=== PATIENT | female | born 1955 | race Caucasian/White ===

== ENCOUNTER 2017-05-21 10:34 | Inpatient (IN) | payer OTHER ==
[~2017-05-21] VITALS: Ht 160 cm; Wt 110.7 kg
[2017-05-21 11:11] LABS: BILIRUBIN,URINE MODERATE (NEG); GLUCOSE,URINE NEGATIVE (NEG); NITRITE,URINE NEGATIVE (NEG); PH,URINE 6.5; PROTEIN,URINE 30 mg/dL (NEG-TRACE)
[2017-05-21 11:38] LABS: BACTERIA,URINE FEW /HPF (0-FEW); RBC,URINE 0 /HPF (0-2); SQUAMOUS EPITHELIAL CELL,UR MANY /LPF; WBC,URINE 0 /HPF (0-4)
[2017-05-21] MEDS ORDERED: ONDANSETRON PF 4 MG/2 ML VIAL. IV ONE (12:00)
[2017-05-21] MEDS ORDERED: fentaNYL PF VIAL 100 MCG/2 ML VIAL IV ONE (12:00)
[2017-05-21] MEDS ORDERED: IOHEXOL 300 MG/ML 100ML VIAL. IV ONE (12:00)
[2017-05-21 12:28] LABS: CALCIUM 9.6 mg/dL (8.5-10.1); CREATININE 1.3 mg/dL (0.6-1.0); GFR 41.8
[2017-05-21 12:34] LABS: ALBUMIN 3.3 g/dL (3.4-5.0); ALBUMIN/GLOBULIN RATIO 0.8 (1.0-1.7); TOTAL BILIRUBIN 0.4 mg/dL (0.2-1.0); TOTAL PROTEIN 7.3 g/dL (6.4-8.2)
[2017-05-21 12:36] LABS: BASO % 0 % (0-3); EOS % 3 % (0-3); HEMATOCRIT 40.1 % (36.0-47.0); HEMOGLOBIN 13.3 g/dL (12.0-15.5); LYMPH # 1.1 x10^3/uL (1.0-4.8); LYMPH % 12 % (24-48); MEAN CORPUSCULAR HEMOGLOBIN 29 pg (25-35); MEAN CORPUSCULAR HGB CONC 33 g/dL (31-37); MEAN CORPUSCULAR VOLUME 86 fL (79-100); MONO % 7 % (0-9); NEUT % 78 % (31-73); PLATELET COUNT 320 x10^3/uL (140-400); RED BLOOD COUNT 4.65 x10^6/uL (3.50-5.40); RED CELL DISTRIBUTION WIDTH 14.3 % (11.5-14.5); WHITE BLOOD COUNT 9.7 x10^3/uL (4.0-11.0)
[2017-05-21] MEDS ORDERED: IOHEXOL 240 MG/ML 50ML VIAL. PO ONE (13:00)
[2017-05-21] MEDS ORDERED: CONTRAST GIVEN MC PRN (13:00)
--- NOTE | 2017-05-21 14:13 | RAD ---
CT of the abdomen and pelvis without contrast, 05/21/2017: History: Right-sided pain Multidetector CT imaging was performed following oral ingestion of contrast. No IV contrast was administered due to the patient's known renal insufficiency. There is mild streaky atelectasis/infiltrate in the right lung base posteriorly. There is a trace amount of associated right-sided pleural fluid. The left lung base is clear. The unopacified liver is unremarkable. The gallbladder contains a single rim-like calcification compatible with a gallstone. The gallbladder barrios are slightly thickened with mild streaky pericholecystic edema. The findings suggest acute cholecystitis. No pancreatic abnormality is seen. The spleen is of normal size. The unopacified kidneys show no abnormality. No adrenal abnormality is detected. Mild aortic calcific plaquing is present without evidence of aneurysm. The uterus and ovaries are unremarkable. There is a tiny amount of free fluid in the pelvis. The bowel loops are not dilated. Several sigmoid diverticula are noted without evidence of paracolic inflammation. The appendix is visualized and it shows no abnormality. No free air is evident in the abdomen. There are mild to moderate scattered degenerative changes in the lumbar spine. IMPRESSION: 1. Cholelithiasis with mild gallbladder wall thickening and pericholecystic edema suggesting acute cholecystitis. 2. Mild right basilar atelectasis and/or pneumonitis with a trace amount of right-sided pleural fluid. 3. Tiny amount of free fluid in the pelvis. 4. Minimal sigmoid diverticulosis. PQRS Compliance Statement: One or more of the following individualized dose reduction techniques were utilized for this examination: 1. Automated exposure control 2. Adjustment of the mA and/or kV according to patient size 3. Use of iterative reconstruction technique
--- NOTE | 2017-05-21 14:43 | PHYS DOC ---
Past Medical History Past Medical History: Hypertension Past Surgical History: Tonsillectomy Alcohol Use: None Drug Use: None Adult General Chief Complaint Chief Complaint: ABDOMINAL PAIN HPI HPI Patient is a 61 year old female with history of biliary disease who presents with diffuse right upper quadrant pain, nausea and vomiting, multiple episodes starting last evening. Pain is persistent with palpation and eating. Patient reports decreased appetite has not attempted to eat or drink since symptoms first began. No fever, chills or sweats. No constipation or diarrhea. No other acute symptoms or complaints. [] Review of Systems Review of Systems Review of symptoms as per history of present illness. All other review symptoms are negative. All other systems were reviewed and found to be within normal limits, except as documented in this note. Current Medications Current Medications Current Medications Medications (Trade) Dose Ordered Sig/Dani Start Time Stop Time Status Last Admin Dose Admin Fentanyl Citrate (Fentanyl 2ml Vial) 75 mcg 1X ONCE 05/21/17 12:00 05/21/17 12:01 DC 05/21/17 12:25 75 MCG Info (Do NOT chart on this entry -- for MONITORING) 1 each PRN DAILY PRN 05/21/17 13:00 05/23/17 12:59 Iohexol (Omnipaque 240 Mg/ml) 30 ml 1X ONCE 05/21/17 13:00 05/21/17 13:01 DC 05/21/17 13:48 30 ML Iohexol (Omnipaque 300 Mg/ml) 75 ml 1X ONCE 05/21/17 12:00 05/21/17 12:01 DC Ondansetron HCl (Zofran) 4 mg 1X ONCE 05/21/17 12:00 05/21/17 12:01 DC 05/21/17 12:24 4 MG Piperacillin Sod/ Tazobactam Sod (Zosyn) 3.375 gm 1X 05/21/17 14:45 Piperacillin Sod/ Tazobactam Sod 3.375 gm/Dextrose 50 ml @ 100 mls/hr 1X ONCE 05/21/17 14:45 05/21/17 15:14 UNV Allergies Allergies Allergies Coded Allergies Type Severity Reaction Last Updated Verified No Known Drug Allergies 05/21/17 No Physical Exam Physical Exam Constitutional: Well developed, well nourished, no acute distress, non-toxic appearance. [] HENT: Normocephalic, atraumatic, bilateral external ears normal, oropharynx moist, no oral exudates, nose normal. [] Eyes: PERRLA, EOMI, conjunctiva normal, no discharge. [] Neck: Normal range of motion, no tenderness, supple, no stridor. [] Cardiovascular:Heart rate regular rhythm, no murmur [] Lungs & Thorax: Bilateral breath sounds clear to auscultation [] Abdomen: Bowel sounds normal, soft, right upper quadrant pain, tenderness, voluntary guarding. [] Skin: Warm, dry, no erythema, no rash. [] Back: No tenderness, no CVA tenderness. [] Extremities: No tenderness, no cyanosis, no clubbing, ROM intact, no edema. [] Neurologic: Alert and oriented X 3, normal motor function, normal sensory function, no focal deficits noted. [] Psychologic: Affect normal, judgement normal, mood normal. [] Current Patient Data Vital Signs Vital Signs Date Time Temp Pulse Resp B/P (MAP) Pulse Ox O2 Delivery O2 Flow Rate FiO2 05/21/17 12:55 Room Air 05/21/17 12:43 84 21 119/71 (87) 05/21/17 12:25 94 05/21/17 10:37 98.1 98.1 Lab Values Laboratory Tests Test 05/21/17 10:55 05/21/17 11:23 Urine Collection Type Unknown Urine Color Jennifer Urine Clarity Cloudy Urine pH 6.5 Urine Specific [place] 1.025 Urine Protein 30 mg/dL (NEG-TRACE) Urine Glucose (UA) Negative mg/dL (NEG) Urine Ketones (Stick) 15 mg/dL (NEG) Urine Blood Negative (NEG) Urine Nitrite Negative (NEG) Urine Bilirubin Moderate (NEG) Urine Urobilinogen Dipstick 1.0 mg/dL (0.2 mg/dL) Urine Leukocyte Esterase Small (NEG) Urine RBC 0 /HPF (0-2) Urine WBC 0 /HPF (0-4) Urine Squamous Epithelial Cells Many /LPF Urine Bacteria Few /HPF (0-FEW) Urine Mucus Mod /LPF White Blood Count 9.7 x10^3/uL (4.0-11.0) Red Blood Count 4.65 x10^6/uL (3.50-5.40) Hemoglobin 13.3 g/dL (12.0-15.5) Hematocrit 40.1 % (36.0-47.0) Mean Corpuscular Volume 86 fL (79-100) Mean Corpuscular Hemoglobin 29 pg (25-35) Mean Corpuscular Hemoglobin Concent 33 g/dL (31-37) Red Cell Distribution Width 14.3 % (11.5-14.5) Platelet Count 320 x10^3/uL (140-400) Neutrophils (%) (Auto) 78 % (31-73) H Lymphocytes (%) (Auto) 12 % (24-48) L Monocytes (%) (Auto) 7 % (0-9) Eosinophils (%) (Auto) 3 % (0-3) Basophils (%) (Auto) 0 % (0-3) Neutrophils # (Auto) 7.5 x10^3uL (1.8-7.7) Lymphocytes # (Auto) 1.1 x10^3/uL (1.0-4.8) Monocytes # (Auto) 0.7 x10^3/uL (0.0-1.1) Eosinophils # (Auto) 0.3 x10^3/uL (0.0-0.7) Basophils # (Auto) 0.0 x10^3/uL (0.0-0.2) Sodium Level 141 mmol/L (136-145) Potassium Level 3.0 mmol/L (3.5-5.1) L Chloride Level 103 mmol/L (98-107) Carbon Dioxide Level 31 mmol/L (21-32) Anion Gap 7 (6-14) Blood Urea Nitrogen 16 mg/dL (7-20) Creatinine 1.3 mg/dL (0.6-1.0) H Estimated GFR (Cockcroft-Gault) 41.8 BUN/Creatinine Ratio 12 (6-20) Glucose Level 94 mg/dL (70-99) Calcium Level 9.6 mg/dL (8.5-10.1) Total Bilirubin 0.4 mg/dL (0.2-1.0) Aspartate Amino Transferase (AST) 22 U/L (15-37) Alanine Aminotransferase (ALT) 21 U/L (14-59) Alkaline Phosphatase 77 U/L (46-116) Total Protein 7.3 g/dL (6.4-8.2) Albumin 3.3 g/dL (3.4-5.0) L Albumin/Globulin Ratio 0.8 (1.0-1.7) L Lipase 87 U/L (73-393) Laboratory Tests 05/21/17 11:23 Laboratory Tests 05/21/17 11:23 EKG EKG [] Radiology/Procedures Radiology/Procedures [CT of and pelvis: Cholelithiasis with gallbladder wall thickening and pericholecystic fluid per radiology report] Course & Med Decision Making Course & Med Decision Making Pertinent Labs and Imaging studies reviewed. (See chart for details) [CT findings consistent with cholecystitis. IV antibiotics given. Pain controlled. Dr. Ji consult surgery. Dr. Hickman to admit. ] Dragon Disclaimer Dragon Disclaimer This electronic medical record was generated, in whole or in part, using a voice recognition dictation system. Departure Departure Impression: Primary Impression: Abdominal pain Additional Impression: Cholecystitis Disposition: ADMITTED INPATIENT Admitting Physician: Other (Dr. Hickman) Condition: STABLE Problem Qualifiers REBECA BRADY DO May 21, 2017 14:43
[2017-05-21] MEDS ORDERED: PIPERACILLIN/TAZO IV Push 3.375 GM VIAL. IVP SCH (14:45)
[2017-05-21] MEDS ORDERED: PIPERACILLIN/TAZOBACTAM 3.375 GM in IV DEXTROSE 5% 50 ML IV ONE (14:45)
[2017-05-21] MEDS ORDERED: PIPERACILLIN/TAZO IV Push 3.375 GM VIAL. IVP ONE (15:30)
[2017-05-21] MEDS ORDERED: PIP/TAZO PER PHARMACY MC PRN (16:00)
[2017-05-21 16:15] VITALS: BP 124/78
[2017-05-21] MEDS ORDERED: LISI1TAB7 PO (16:46)
[2017-05-21] MEDS: POTASSIUM CL 20MEQ-0.45% NACL 1,000 ML IV SCH (17:26)
[2017-05-21 19:00] VITALS: BP 124/68
[2017-05-21] MEDS ORDERED: INFLUENZA VAX SCREEN BY RX. MC ONE (19:30)
[2017-05-21] MEDS: MORPHINE SULFATE 4 MG/ML DISP.SYRIN. IV PRN ×2 (19:51→23:13)
[2017-05-21] MEDS ORDERED: FLU VACC QS2017-18 (36MOS+)/PF 0.5 ML SYRINGE. VAX IM ONE (20:00)
[2017-05-21] MEDS ORDERED: METOCLOPRAMIDE HCL 10 MG/2 ML VIAL. IV PRN (20:15)
--- NOTE | 2017-05-21 21:17 | HP ---
ADMIT DATE: 05/21/2017 CHIEF COMPLAINT: Abdominal pain. HISTORY OF PRESENT ILLNESS: The patient is a 61-year-old morbidly obese woman with past medical history of hypertension who presented to the Emergency Room with right upper quadrant pain, nausea, vomiting. She relates this started about 2 days ago, last night; however, it became severe and when she woke up this morning, still throwing up bile. She decided to present to the Emergency Room. She has not been able to eat and drink since symptoms began due to nausea and vomiting. She, however, denies any fevers or chills. Denies any diarrhea or other abdominal symptoms. Denies any chest pain or shortness of breath. PAST MEDICAL HISTORY: Hypertension. SURGICAL HISTORY: Tonsillectomy at age 7. SOCIAL HISTORY: Lives with her . Never smoked, no toxic habits. ALLERGIES: No known drug allergies. MEDICATIONS: MAR reconciled with home medications. REVIEW OF SYSTEMS: Positive as per HPI. Rest of organ system review is negative. PHYSICAL EXAMINATION: VITAL SIGNS: From today show a blood pressure of 124/68, heart rate of 87, respiratory rate at 18. She is afebrile. GENERAL: This is a morbidly obese 61-year-old woman, alert and oriented, in no acute distress, lying on her side. HEENT: Shows no scleral icterus. NECK: Supple. LUNGS: Clear to auscultation bilaterally. HEART: Regular rate and rhythm. ABDOMEN: Obese, positive bowel sounds. There is mild tenderness to palpation. She relates, however, that pain is persistent, not worsened by direct pressure. EXTREMITIES: Show no edema. SKIN: Warm, soft and dry without any rash. LABORATORY DATA: See with a WBC of 9.7, hemoglobin 13.3, platelets of 320. Chemistries with a BUN and creatinine of 60 and 1.3. Electrolytes with potassium of 3.0. Albumin at 3.3. Urine is benign. IMAGING STUDIES: Not available and some at [facility]. ASSESSMENT AND PLAN: The patient is a 61-year-old morbidly obese woman with cholecystitis. Dr. Ji has been consulted already and is planning to take her to surgery in the a.m. For pain control here, she will have morphine sulfate available. The Pip/Tazo was started empirically in the Emergency Room. We will continue for the time being. Probably will not need this past surgery. She will be kept n.p.o. She has metoclopramide available for nausea. She feels the contrast from her CAT scan is still in her stomach and she is burping up the flavor. She does have a history of hypertension. We will continue her home meds of lisinopril. We will hold hydrochlorothiazide. BLOSSOM DAVILA MD DR: ISAEL/leora JOB#: [id number] / [id number] YOVANY Little APRN
[2017-05-21 23:00] VITALS: BP 118/70
[2017-05-21] MEDS: PIPERACILLIN/TAZO IV Push 3.375 GM VIAL. IVP SCH (23:13)
[2017-05-21] MEDS: ONDANSETRON PF 4 MG/2 ML VIAL. IV PRN (23:17)
[2017-05-22] VITALS (12 sets, daily range): BP systolic 105–128; BP diastolic 59–76
[2017-05-22] MEDS: PIPERACILLIN/TAZO IV Push 3.375 GM VIAL. IVP SCH ×4 (06:30→23:44)
[2017-05-22] MEDS ORDERED: IV RINGERS,LACTATED 1000ML 1,000 ML IV SCH (07:28)
[2017-05-22] MEDS ORDERED: fentaNYL PF VIAL 100 MCG/2 ML VIAL IV PRN ×2 (07:30)
[2017-05-22] MEDS ORDERED: HYDROmorphone 2 MG/ML VIAL IV PRN (07:30)
[2017-05-22] MEDS ORDERED: ONDANSETRON PF 4 MG/2 ML VIAL. IV PRN ×2 (07:30→13:00)
[2017-05-22] MEDS ORDERED: LIDOCAINE 1% PF 2 ML VIAL. ID PRN (07:30)
[2017-05-22] MEDS ORDERED: MORPHINE SULFATE 2 MG/ML DISP.SYRIN. IV PRN (07:30)
--- NOTE | 2017-05-22 07:54 | PDOC2 ---
CLAUS COTTER BUREAU DIRECTOR 05/22/17 0754: CONSULT Date of Consult Date of Consult DATE: 05/22/17 TIME: 07:51 Reason for Consult Reason for Consult: cholecystitis Referring Physician Referring Physician: ER Identification/Chief Complaint Chief Complaint abd pain Problems: Source Source: Chart review, Patient History of Present Illness Reason for Visit: RUQ pain since Wednesday. Unable to eat. Associated nausea and emesis. No radiation of pain to back. Similar pain several years ago, however resolved without intervention. No aggravating factors. Pain medication has alleviated Past Medical History Cardiovascular: HTN Past Surgical History Past Surgical History: Tonsillectomy Family History Family History: Other (noncontributory to current illness ) Social History No ALCOHOL: none Drugs: None Lives: with Family Current Problem List Problem List Problems Medical Problems: (1) Abdominal pain Status: Acute (2) Cholecystitis Status: Acute Current Medications Current Medications Current Medications Fentanyl Citrate (Fentanyl 2ml Vial) 75 mcg 1X ONCE IV Last administered on 12:25; Start 05/21/17 at 12:00; Stop 05/21/17 at 12:01; Status DC Ondansetron HCl (Zofran) 4 mg 1X ONCE IV Last administered on 05/21/17 12:24 ; Start 05/21/17 at 12:00; Stop 05/21/17 at 12:01; Status DC Iohexol (Omnipaque 300 Mg/ml) 75 ml 1X ONCE IV ; Start 05/21/17 at 12:00; Stop 05/21/17 at 12:01; Status DC Iohexol (Omnipaque 240 Mg/ml) 30 ml 1X ONCE PO Last administered on t 13:48; Start 05/21/17 at 13:00; Stop 05/21/17 at 13:01; Status DC Info (Do NOT chart on this entry -- for MONITORING) 1 each PRN DAILY PRN MC SEE COMMENTS; Start 05/21/17 at 13:00; Stop 05/23/17 at 12:59 Piperacillin Sod/ Tazobactam Sod 3.375 gm/Dextrose 50 ml @ 100 mls/hr 1X ONCE IV ; Start 05/21/17 at 14:45; Stop 05/21/17 at 15:14; Status Cancel Piperacillin Sod/ Tazobactam Sod (Zosyn) 3.375 gm 1X IVP ; Start 05/21/17 at 14 :45; Stop 05/21/17 at 15:22; Status DC Piperacillin Sod/ Tazobactam Sod (Zosyn) 3.375 gm 1X ONCE IVP Last administered on 05/21/17 15:25; Start 05/21/17 at 15:30; Stop 05/21/17 at 15 :31; Status DC Ondansetron HCl (Zofran) 4 mg PRN Q6HRS PRN IV NAUSEA/VOMITING Last administered on 05/21/17 23:17; Start 05/21/17 at 16:00 Morphine Sulfate 2 mg PRN Q2HR PRN IV PAIN Last administered on 05/21/17 23: 13; Start 05/21/17 at 16:00 Piperacillin Sod/ Tazobactam Sod (Zosyn Per Pharmacy) 1 each PRN DAILY PRN MC SEE COMMENTS; Start 05/21/17 at 16:00 Potassium Chloride/Sodium Chloride 1,000 ml @ 75 mls/hr [id number] IV Last administered on 05/21/17 17:26; Start 05/21/17 at 16:30 Piperacillin Sod/ Tazobactam Sod (Zosyn) 3.375 gm Q6HRS IVP Last administered on 05/22/17 06:30; Start 05/21/17 at 23:00 Info (Do NOT chart on this placeholder) 0.5 each 1X ONCE MC ; Start 05/21/17 at 19:30; Stop 05/21/17 at 19:31; Status UNV Influenza Virus Vaccine Quadrival (Fluarix Quad [id number] Syringe) 0.5 ml ONCE ONCE VAX IM ; Start 05/21/17 at 20:00; Stop 05/21/17 at 20:01; Status DC Metoclopramide HCl (Reglan Vial) 10 mg PRN Q6HRS PRN IV NAUSEA/VOMITING Last administered on 05/21/17 21:02; Start 05/21/17 at 20:15 Lisinopril (Prinivil) 20 mg DAILY PO ; Start 05/22/17 at 09:00 Cefazolin Sodium/ Dextrose 50 ml @ 100 mls/hr 1X PREOP ONCE IV ; Start at 09:00; Stop 05/22/17 at 09:29 Ondansetron HCl (Zofran) 4 mg PRN Q6HRS PRN IV NAUSEA/VOMITING; Start at 07:30; Stop 05/23/17 at 07:29 Fentanyl Citrate (Fentanyl 2ml Vial) 25 mcg PRN Q5MIN PRN IV MILD PAIN; Start 05/22/17 at 07:30; Stop 05/23/17 at 07:29 Fentanyl Citrate (Fentanyl 2ml Vial) 50 mcg PRN Q5MIN PRN IV MODERATE PAIN; Start 05/22/17 at 07:30; Stop 05/23/17 at 07:29 Morphine Sulfate 1 mg PRN Q10MIN PRN IV SEVERE PAIN; Start 05/22/17 at 07:30; Stop 05/23/17 at 07:29 Ringer's Solution 1,000 ml @ 30 mls/hr Q24H IV ; Start 05/22/17 at 07:28; Stop 05/22/17 at 19:27 Lidocaine HCl (Xylocaine-Mpf 1% Vial) 2 ml 1X PRN PRN ID IV START; Start 05/22 at 07:30; Stop 05/23/17 at 07:29 Hydromorphone HCl (Dilaudid) 0.5 mg PRN Q10MIN PRN IV SEV PAIN, Second choice; Start 05/22/17 at 07:30; Stop 05/23/17 at 07:29 Active Scripts Active Reported Lisinopril-Hctz 20-25 Mg Tab (Lisinopril/Hydrochlorothiazide) 1 Each Tablet 1 Tab PO DAILY Allergies Allergies: Coded Allergies: No Known Drug Allergies (Unverified , 05/21/17) ROS General: YES: Chills, Other (+ fevers) PSYCHOLOGICAL ROS: No: Anxiety, Depression Eyes: No Blurry vision, No Double vision HEENT: No: Heacaches, Sore Throat Hematological and Lymphatic: No: Bleeding Problems, Blood Clots Respiratory: No: Cough, Shortness of breath Cardiovascular: No Chest Pain, No Palpitations Gastrointestinal: Yes Other (see hpi), No Diarrhea, No Constipation Genitourinary: No Dysuria, No Hematuria Musculoskeletal: No Joint Pain, No Muscle Pain Neurological: No Impaired Coord/balance, No Seizures Skin: No Pruritus, No Rash Physical Exam General: Alert, Oriented X3, Cooperative, No acute distress HEENT: PERRLA, Mucous membr. moist/pink Lungs: Clear to auscultation, Normal air movement Heart: Regular rate, Normal S1, Normal S2, No murmurs Abdomen: Soft, Other (mild tenderness RUQ) Extremities: No clubbing, No cyanosis Skin: No rashes, No breakdown Neuro: Normal gait, Normal speech Psych/Mental Status: Mental status NL, Mood NL MUSCULOSKELETAL: No deformity, No swelling Vitals VITALS Vital Signs Date Time Temp Pulse Resp B/P (MAP) Pulse Ox O2 Delivery O2 Flow Rate FiO2 05/22/17 03:00 98.2 18 18 116/74 (88) 91 Room Air 98.2 Labs Labs Laboratory Tests Test 05/21/17 10:55 05/21/17 11:23 Urine Collection Type Unknown Urine Color Jennifer Urine Clarity Cloudy Urine pH 6.5 Urine Specific [place] 1.025 Urine Protein 30 mg/dL (NEG-TRACE) Urine Glucose (UA) Negative mg/dL (NEG) Urine Ketones (Stick) 15 mg/dL (NEG) Urine Blood Negative (NEG) Urine Nitrite Negative (NEG) Urine Bilirubin Moderate (NEG) Urine Urobilinogen Dipstick 1.0 mg/dL (0.2 mg/dL) Urine Leukocyte Esterase Small (NEG) Urine RBC 0 /HPF (0-2) Urine WBC 0 /HPF (0-4) Urine Squamous Epithelial Cells Many /LPF Urine Bacteria Few /HPF (0-FEW) Urine Mucus Mod /LPF White Blood Count 9.7 x10^3/uL (4.0-11.0) Red Blood Count 4.65 x10^6/uL (3.50-5.40) Hemoglobin 13.3 g/dL (12.0-15.5) Hematocrit 40.1 % (36.0-47.0) Mean Corpuscular Volume 86 fL (79-100) Mean Corpuscular Hemoglobin 29 pg (25-35) Mean Corpuscular Hemoglobin Concent 33 g/dL (31-37) Red Cell Distribution Width 14.3 % (11.5-14.5) Platelet Count 320 x10^3/uL (140-400) Neutrophils (%) (Auto) 78 % (31-73) Lymphocytes (%) (Auto) 12 % (24-48) Monocytes (%) (Auto) 7 % (0-9) Eosinophils (%) (Auto) 3 % (0-3) Basophils (%) (Auto) 0 % (0-3) Neutrophils # (Auto) 7.5 x10^3uL (1.8-7.7) Lymphocytes # (Auto) 1.1 x10^3/uL (1.0-4.8) Monocytes # (Auto) 0.7 x10^3/uL (0.0-1.1) Eosinophils # (Auto) 0.3 x10^3/uL (0.0-0.7) Basophils # (Auto) 0.0 x10^3/uL (0.0-0.2) Sodium Level 141 mmol/L (136-145) Potassium Level 3.0 mmol/L (3.5-5.1) Chloride Level 103 mmol/L (98-107) Carbon Dioxide Level 31 mmol/L (21-32) Anion Gap 7 (6-14) Blood Urea Nitrogen 16 mg/dL (7-20) Creatinine 1.3 mg/dL (0.6-1.0) Estimated GFR (Cockcroft-Gault) 41.8 BUN/Creatinine Ratio 12 (6-20) Glucose Level 94 mg/dL (70-99) Calcium Level 9.6 mg/dL (8.5-10.1) Total Bilirubin 0.4 mg/dL (0.2-1.0) Aspartate Amino Transf (AST/SGOT) 22 U/L (15-37) Alanine Aminotransferase (ALT/SGPT) 21 U/L (14-59) Alkaline Phosphatase 77 U/L (46-116) Total Protein 7.3 g/dL (6.4-8.2) Albumin 3.3 g/dL (3.4-5.0) Albumin/Globulin Ratio 0.8 (1.0-1.7) Lipase 87 U/L (73-393) Laboratory Tests Test 05/21/17 10:55 05/21/17 11:23 Urine Collection Type Unknown Urine Color Jennifer Urine Clarity Cloudy Urine pH 6.5 Urine Specific [place] 1.025 Urine Protein 30 mg/dL (NEG-TRACE) Urine Glucose (UA) Negative mg/dL (NEG) Urine Ketones (Stick) 15 mg/dL (NEG) Urine Blood Negative (NEG) Urine Nitrite Negative (NEG) Urine Bilirubin Moderate (NEG) Urine Urobilinogen Dipstick 1.0 mg/dL (0.2 mg/dL) Urine Leukocyte Esterase Small (NEG) Urine RBC 0 /HPF (0-2) Urine WBC 0 /HPF (0-4) Urine Squamous Epithelial Cells Many /LPF Urine Bacteria Few /HPF (0-FEW) Urine Mucus Mod /LPF White Blood Count 9.7 x10^3/uL (4.0-11.0) Red Blood Count 4.65 x10^6/uL (3.50-5.40) Hemoglobin 13.3 g/dL (12.0-15.5) Hematocrit 40.1 % (36.0-47.0) Mean Corpuscular Volume 86 fL (79-100) Mean Corpuscular Hemoglobin 29 pg (25-35) Mean Corpuscular Hemoglobin Concent 33 g/dL (31-37) Red Cell Distribution Width 14.3 % (11.5-14.5) Platelet Count 320 x10^3/uL (140-400) Neutrophils (%) (Auto) 78 % (31-73) Lymphocytes (%) (Auto) 12 % (24-48) Monocytes (%) (Auto) 7 % (0-9) Eosinophils (%) (Auto) 3 % (0-3) Basophils (%) (Auto) 0 % (0-3) Neutrophils # (Auto) 7.5 x10^3uL (1.8-7.7) Lymphocytes # (Auto) 1.1 x10^3/uL (1.0-4.8) Monocytes # (Auto) 0.7 x10^3/uL (0.0-1.1) Eosinophils # (Auto) 0.3 x10^3/uL (0.0-0.7) Basophils # (Auto) 0.0 x10^3/uL (0.0-0.2) Sodium Level 141 mmol/L (136-145) Potassium Level 3.0 mmol/L (3.5-5.1) Chloride Level 103 mmol/L (98-107) Carbon Dioxide Level 31 mmol/L (21-32) Anion Gap 7 (6-14) Blood Urea Nitrogen 16 mg/dL (7-20) Creatinine 1.3 mg/dL (0.6-1.0) Estimated GFR (Cockcroft-Gault) 41.8 BUN/Creatinine Ratio 12 (6-20) Glucose Level 94 mg/dL (70-99) Calcium Level 9.6 mg/dL (8.5-10.1) Total Bilirubin 0.4 mg/dL (0.2-1.0) Aspartate Amino Transf (AST/SGOT) 22 U/L (15-37) Alanine Aminotransferase (ALT/SGPT) 21 U/L (14-59) Alkaline Phosphatase 77 U/L (46-116) Total Protein 7.3 g/dL (6.4-8.2) Albumin 3.3 g/dL (3.4-5.0) Albumin/Globulin Ratio 0.8 (1.0-1.7) Lipase 87 U/L (73-393) Assessment/Plan Assessment/Plan cholecystitis HTN obesity, BMI 42.5 continue abx plan lap roni today PHILIP MILLS MD 05/22/17 0956: CONSULT Allergies Allergies: Coded Allergies: No Known Drug Allergies (Unverified , 05/21/17) Assessment/Plan Assessment/Plan Pt seen and examined. Agree with Ms. Cotter's note Pt with c/o RUQ pain, better since admission, previous episode strong fhx hx of gallbladder issues mild TTP RUQ TO OR for lap vs open cholecystectomy with cholangiogram R/B/A d/w pt and pt's . Risks, including, but not limited to: bleeding , infection, damage to surrounding structures. They appear to understand, their questions are answered and they agree to proceed. Thanks for consult! CLAUS COTTER APRN May 22, 2017 07:54 PHILIP MILLS MD May 22, 2017 09:56
[2017-05-22] MEDS: POTASSIUM CL 20MEQ-0.45% NACL 1,000 ML IV SCH ×2 (07:58→19:10)
[2017-05-22] MEDS: LISINOPRIL 20 MG TABLET PO SCH (10:02)
[2017-05-22] MEDS ORDERED: BUPIVAC MPF-EPI 0.5%-1:200000 30 ML VIAL. ONE (10:27)
[2017-05-22] MEDS ORDERED: SURGICEL HEMOSTAT 2X3 EACH. ONE (10:27)
[2017-05-22] MEDS ORDERED: IOHEXOL 300 MG/ML 50 ML VIAL. ONE (10:27)
[2017-05-22] MEDS ORDERED: HEPARIN for IV BOLUS 10,000 UNIT/10 ML VIAL. ONE (10:28)
[2017-05-22] MEDS ORDERED: BISACODYL 10 MG SUPP.RECT. ONE (10:28)
[2017-05-22] MEDS ORDERED: NEOSTIGMINE 10 MG/10 ML VIAL. ONE (10:29)
[2017-05-22] MEDS ORDERED: ROCURONIUM 50 MG/5 ML VIAL. ONE ×2 (10:29→12:12)
[2017-05-22] MEDS ORDERED: GLYCOPYRROLATE 1 MG/5 ML VIAL. ONE (10:30)
[2017-05-22] MEDS ORDERED: MIDAZOLAM HCL/PF 2 MG/2 ML VIAL. ONE (10:30)
[2017-05-22] MEDS ORDERED: PROPOFOL 20 ML IV ONE (10:30)
[2017-05-22] MEDS ORDERED: LIDOCAINE 2% PF Vial for OR 5 ML VIAL. ONE (10:30)
[2017-05-22] MEDS ORDERED: ONDANSETRON PF 4 MG/2 ML VIAL. ONE (10:30)
[2017-05-22] MEDS ORDERED: fentaNYL PF VIAL 100 MCG/2 ML VIAL ONE ×5 (10:30→13:17)
[2017-05-22] MEDS ORDERED: DEXAMETHASONE SOD PHOS 20 MG/5 ML VIAL. ONE (10:30)
[2017-05-22] MEDS ORDERED: SCOPOLAMINE 1.5MG PATCH. TD ONE (10:34)
[2017-05-22] MEDS ORDERED: PHENYLEPHRINE in 0.9% NACL PF 1 MG/10 ML DISP.SYRIN. IV ONE (11:15)
[2017-05-22] MEDS ORDERED: DESFLURANE 61 TO 120 MINUTES IH ONE (11:55)
[2017-05-22] MEDS ORDERED: MORPHINE SULFATE 10 MG/ML VIAL. ONE (12:27)
--- NOTE | 2017-05-22 12:49 | RAD ---
CHOLANGIOGRAM INTRAOPERATIVE Clinical Indication: CHOLANGIOGRAMS IN OR WITH C-ARM. Comparison: None. Findings: Total fluoroscopy time 24 seconds. 3 fluoroscopic spot images. Contrast injection of biliary tree. The common bile duct at the ampulla is obscured due to overlying instrumentation. No filling defect in the visualized common bile duct is seen. There is spillage of contrast into the duodenum. Common bile duct is not dilated. IMPRESSION: Intraoperative cholangiogram.
[2017-05-22] MEDS: IV RINGERS,LACTATED 1000ML 1,000 ML IV SCH ×2 (12:57→22:32)
[2017-05-22] MEDS ORDERED: MORPHINE SULFATE 4 MG/ML DISP.SYRIN. IV PRN (13:00)
[2017-05-22] MEDS ORDERED: HYDROcodone/APAP 5/325MG 1 TAB TABLET PO PRN (13:00)
[2017-05-22] MEDS ORDERED: 0.9 % SODIUM CHLORIDE 10 ML DISP.SYRIN. IV PRN (13:00)
[2017-05-22] MEDS ORDERED: DEXTROSE 50% 25 GM / 50ML DISP.SYRIN. IV PRN (13:00)
--- NOTE | 2017-05-22 13:04 | PDOC ---
PROGRESS NOTES Chief Complaint Chief Complaint RUQ abd pain ASSESSMENT AND PLAN: 1. Cholecystitis: lap roni today 2. Pain control: IV/PO narcotics PRN 3. HTN: well controlled on lisinopril History of Present Illness History of Present Illness essentially unchanged. awaiting surg. Vitals Vitals Vital Signs Date Time Temp Pulse Resp B/P (MAP) Pulse Ox O2 Delivery O2 Flow Rate FiO2 05/22/17 10:15 97.8 74 22 140/74 92 Room Air 97.8 Physical Exam General: Alert, Oriented X3, Cooperative, No acute distress Heart: Regular rate, No murmurs Lungs: Clear Abdomen: Soft, Other (mild tenderness RUQ) Extremities: No edema Skin: No rashes BLOSSOM DAVILA MD May 22, 2017 13:03
--- NOTE | 2017-05-22 13:08 | PDOC4 ---
OPERATIVE NOTE Date: Date: May 22, 2017 Pre-Op Diagnosis: Cholecystitis Post-Op Diagnosis: severe cholecystitis Procedure Performed: Laparoscopic converted to open cholecystectomy with cholangiogram Surgeon: Terry Mills Anesthesia Type: GETA plus 0.5% marcaine Blood Loss: 100 Specimans Obtained: gallbladder Findings: severe cholecystitis, normal cholangiogram Complications: none Operative Note: After obtaining informed consent, patient was taken to the OR, induced under GETA and prepped in the usual fashion. 5 mm port placed in supraumbilical area and right upper quadrant and 12 port placed epigastric, all under laparoscopic guidance. Abdominal cavity explored. No evidence of trocar injury or other pathology. Patient is morbidly obese. Severe cholecystitis with obliteration of surgical planes. Initial laparoscopic dissection did not reveal appropriate planes. As such, it is in patient's best interest to proceed with open procedure. Fabiola incision made using cautery and through abdominal wall musculature. Adhesions to the gallbladder were cleared using carefully blunt and sharp dissection. Gallbladder taken down with cautery in a dome down fashion. Ultimately, critical view was obtained, as the cystic artery and cystic duct only structures remaining holding gallbladder in place. Cholangiogram was obtained and unremarkable. Cystic artery ligated with clips. Cystic duct ligated with 0 vicryl and clips. Gallbladder sent to pathology. Copious irrigation. No evidence of bleeding or bile leak. Surgicel cell placed in fossa. 19 DAISY drain placed and secured with 3 0 nylon. Peritoneum repaired with 0 vicryl. Fascia repaired with 0 PDS. Skin repaired with 3 0 vicryl and 4 0 monocryl. Dressing applied. Patient tolerated procedure well and sent to PACU in stable condition. All counts were correct. No immediate complications. Difficult procedure given obesity and severe infection. Wound class 4. TERRY MILLS MD May 22, 2017 13:08
[2017-05-22] MEDS ORDERED: ALBUTEROL SULFATE 2.5 MG/3 ML NEBU. NEB PRN (13:15)
[2017-05-22] MEDS ORDERED: ALBUTEROL SULFATE 2.5 MG/3 ML NEBU. ONE (13:17)
[2017-05-22] MEDS: KETOROLAC 30 MG/ML INJ. IV PRN (17:35)
[2017-05-22] MEDS: DOCUSATE SODIUM 100 MG CAPSULE. PO SCH (21:01)
[2017-05-22] MEDS: ENOXAPARIN 40 MG/0.4 ML SYRINGE. SQ SCH (21:02)
[2017-05-22] MEDS: MORPHINE SULFATE 4 MG/ML DISP.SYRIN. IV PRN (21:14)
[2017-05-22] MEDS: ONDANSETRON PF 4 MG/2 ML VIAL. IV PRN (21:15)
[2017-05-23] MEDS: POTASSIUM CL 20MEQ-0.45% NACL 1,000 ML IV SCH ×2 (02:53→17:45)
[2017-05-23 03:00] VITALS: BP 103/56
[2017-05-23] MEDS: MORPHINE SULFATE 4 MG/ML DISP.SYRIN. IV PRN (03:03)
[2017-05-23] MEDS: ONDANSETRON PF 4 MG/2 ML VIAL. IV PRN (03:04)
[2017-05-23 05:42] LABS: BASO % 0 % (0-3); EOS % 0 % (0-3); HEMATOCRIT 34.1 % (36.0-47.0); HEMOGLOBIN 11.2 g/dL (12.0-15.5); LYMPH # 0.6 x10^3/uL (1.0-4.8); LYMPH % 4 % (24-48); MEAN CORPUSCULAR HEMOGLOBIN 28 pg (25-35); MEAN CORPUSCULAR HGB CONC 33 g/dL (31-37); MEAN CORPUSCULAR VOLUME 86 fL (79-100); MONO % 5 % (0-9); NEUT % 91 % (31-73); PLATELET COUNT 290 x10^3/uL (140-400); RED BLOOD COUNT 3.96 x10^6/uL (3.50-5.40); RED CELL DISTRIBUTION WIDTH 14.1 % (11.5-14.5); WHITE BLOOD COUNT 14.8 x10^3/uL (4.0-11.0)
[2017-05-23] MEDS: PIPERACILLIN/TAZO IV Push 3.375 GM VIAL. IVP SCH ×4 (05:42→23:41)
[2017-05-23 06:19] LABS: ALBUMIN 2.5 g/dL (3.4-5.0); CALCIUM 8.7 mg/dL (8.5-10.1); CREATININE 1.4 mg/dL (0.6-1.0); DIRECT BILIRUBIN 0.2 mg/dL (0.0-0.2); GFR 38.4; POTASSIUM 4.1 mmol/L (3.5-5.1); TOTAL BILIRUBIN 0.4 mg/dL (0.2-1.0)
[2017-05-23 07:00] VITALS: BP 105/58
[2017-05-23] MEDS: IV RINGERS,LACTATED 1000ML 1,000 ML IV SCH (08:57)
[2017-05-23] MEDS: LISINOPRIL 20 MG TABLET PO SCH (09:00)
[2017-05-23] MEDS: DOCUSATE SODIUM 100 MG CAPSULE. PO SCH ×2 (09:06→20:03)
[2017-05-23] MEDS: KETOROLAC 30 MG/ML INJ. IV PRN ×2 (09:06→17:44)
[2017-05-23] MEDS: ENOXAPARIN 40 MG/0.4 ML SYRINGE. SQ SCH ×2 (09:09→20:03)
[2017-05-23] MEDS: IV NORMAL SALINE 1000ML BAG 1,000 ML IV SCH (09:15)
[2017-05-23] MEDS ORDERED: oxyCODONE IR 5 MG TABLET PO PRN (09:15)
--- NOTE | 2017-05-23 09:18 | PDOC ---
PROGRESS NOTES Chief Complaint Chief Complaint RUQ abd pain ASSESSMENT AND PLAN: 1. Cholecystitis: s/p CCY, lap converted to open, on 05/22 2. Pain control: difficult; IV/PO narcotics PRN 3. Hypoxia: acute on chronic; needed BIPAP post surg, as well as add.l O2 when sleeping. ?obesity induced hypoventilation vs underlying lung dz; not a smoker. pulm consult 4. Nutrition: on clears; advance as per surg team 5. HTN: well controlled on lisinopril 6. Leukocytosis: reactive. monitor 7. Hypokalemia: resolved. 8. PCM: mild, hypoalbuminemia exacerbated by inflammation. 9. Prophylaxis: History of Present Illness History of Present Illness pain with even minimal movement. tolerating PO Vitals Vitals Vital Signs Date Time Temp Pulse Resp B/P (MAP) Pulse Ox O2 Delivery O2 Flow Rate FiO2 05/23/17 07:50 Nasal Cannula 2.0 05/23/17 07:00 98.1 69 18 105/58 (74) 94 98.1 Physical Exam General: Alert, Oriented X3, Cooperative, mild distress Heart: Regular rate, No murmurs Lungs: Clear Abdomen: Soft, Other (mod tenderness RUQ/mid abd) Extremities: No edema Skin: No rashes Labs LABS Laboratory Tests Test 05/23/17 05:00 White Blood Count 14.8 x10^3/uL (4.0-11.0) Red Blood Count 3.96 x10^6/uL (3.50-5.40) Hemoglobin 11.2 g/dL (12.0-15.5) Hematocrit 34.1 % (36.0-47.0) Mean Corpuscular Volume 86 fL (79-100) Mean Corpuscular Hemoglobin 28 pg (25-35) Mean Corpuscular Hemoglobin Concent 33 g/dL (31-37) Red Cell Distribution Width 14.1 % (11.5-14.5) Platelet Count 290 x10^3/uL (140-400) Neutrophils (%) (Auto) 91 % (31-73) Lymphocytes (%) (Auto) 4 % (24-48) Monocytes (%) (Auto) 5 % (0-9) Eosinophils (%) (Auto) 0 % (0-3) Basophils (%) (Auto) 0 % (0-3) Neutrophils # (Auto) 13.5 x10^3uL (1.8-7.7) Lymphocytes # (Auto) 0.6 x10^3/uL (1.0-4.8) Monocytes # (Auto) 0.7 x10^3/uL (0.0-1.1) Eosinophils # (Auto) 0.0 x10^3/uL (0.0-0.7) Basophils # (Auto) 0.0 x10^3/uL (0.0-0.2) Sodium Level 139 mmol/L (136-145) Potassium Level 4.1 mmol/L (3.5-5.1) Chloride Level 104 mmol/L (98-107) Carbon Dioxide Level 27 mmol/L (21-32) Anion Gap 8 (6-14) Blood Urea Nitrogen 24 mg/dL (7-20) Creatinine 1.4 mg/dL (0.6-1.0) Estimated GFR (Cockcroft-Gault) 38.4 Glucose Level 110 mg/dL (70-99) Calcium Level 8.7 mg/dL (8.5-10.1) Total Bilirubin 0.4 mg/dL (0.2-1.0) Direct Bilirubin 0.2 mg/dL (0.0-0.2) Aspartate Amino Transf (AST/SGOT) 60 U/L (15-37) Alanine Aminotransferase (ALT/SGPT) 54 U/L (14-59) Alkaline Phosphatase 79 U/L (46-116) Total Protein 6.0 g/dL (6.4-8.2) Albumin 2.5 g/dL (3.4-5.0) BLOSSOM DAVILA MD May 23, 2017 09:18
--- NOTE | 2017-05-23 09:30 | PDOC ---
SURGICAL PROGRESS NOTE Subjective abdominal pain no emesis Vital Signs Vital Signs Date Time Temp Pulse Resp B/P (MAP) Pulse Ox O2 Delivery O2 Flow Rate FiO2 05/23/17 09:06 Nasal Cannula 2.0 05/23/17 07:00 98.1 69 18 105/58 (74) 94 98.1 I&O Intake and Output 05/23/17 07:00 Intake Total 1075 ml Output Total 394 ml Balance 681 ml Intake Oral 75 ml IV Total 1000 ml Output Urine Total 250 ml Gastric Drainage Total 70 ml Drainage Total 74 ml General: Alert, Oriented X3, Cooperative, No acute distress Abdomen: Soft Extremities: Other (dressing dry, jareth bilious tinge) Labs Laboratory Tests Test 05/21/17 10:55 05/21/17 11:23 05/23/17 05:00 Urine Collection Type Unknown Urine Color Jennifer Urine Clarity Cloudy Urine pH 6.5 Urine Specific [place] 1.025 Urine Protein 30 mg/dL (NEG-TRACE) Urine Glucose (UA) Negative mg/dL (NEG) Urine Ketones (Stick) 15 mg/dL (NEG) Urine Blood Negative (NEG) Urine Nitrite Negative (NEG) Urine Bilirubin Moderate (NEG) Urine Urobilinogen Dipstick 1.0 mg/dL (0.2 mg/dL) Urine Leukocyte Esterase Small (NEG) Urine RBC 0 /HPF (0-2) Urine WBC 0 /HPF (0-4) Urine Squamous Epithelial Cells Many /LPF Urine Bacteria Few /HPF (0-FEW) Urine Mucus Mod /LPF White Blood Count 9.7 x10^3/uL (4.0-11.0) 14.8 x10^3/uL (4.0-11.0) Red Blood Count 4.65 x10^6/uL (3.50-5.40) 3.96 x10^6/uL (3.50-5.40) Hemoglobin 13.3 g/dL (12.0-15.5) 11.2 g/dL (12.0-15.5) Hematocrit 40.1 % (36.0-47.0) 34.1 % (36.0-47.0) Mean Corpuscular Volume 86 fL (79-100) 86 fL (79-100) Mean Corpuscular Hemoglobin 29 pg (25-35) 28 pg (25-35) Mean Corpuscular Hemoglobin Concent 33 g/dL (31-37) 33 g/dL (31-37) Red Cell Distribution Width 14.3 % (11.5-14.5) 14.1 % (11.5-14.5) Platelet Count 320 x10^3/uL (140-400) 290 x10^3/uL (140-400) Neutrophils (%) (Auto) 78 % (31-73) 91 % (31-73) Lymphocytes (%) (Auto) 12 % (24-48) 4 % (24-48) Monocytes (%) (Auto) 7 % (0-9) 5 % (0-9) Eosinophils (%) (Auto) 3 % (0-3) 0 % (0-3) Basophils (%) (Auto) 0 % (0-3) 0 % (0-3) Neutrophils # (Auto) 7.5 x10^3uL (1.8-7.7) 13.5 x10^3uL (1.8-7.7) Lymphocytes # (Auto) 1.1 x10^3/uL (1.0-4.8) 0.6 x10^3/uL (1.0-4.8) Monocytes # (Auto) 0.7 x10^3/uL (0.0-1.1) 0.7 x10^3/uL (0.0-1.1) Eosinophils # (Auto) 0.3 x10^3/uL (0.0-0.7) 0.0 x10^3/uL (0.0-0.7) Basophils # (Auto) 0.0 x10^3/uL (0.0-0.2) 0.0 x10^3/uL (0.0-0.2) Sodium Level 141 mmol/L (136-145) 139 mmol/L (136-145) Potassium Level 3.0 mmol/L (3.5-5.1) 4.1 mmol/L (3.5-5.1) Chloride Level 103 mmol/L (98-107) 104 mmol/L (98-107) Carbon Dioxide Level 31 mmol/L (21-32) 27 mmol/L (21-32) Anion Gap 7 (6-14) 8 (6-14) Blood Urea Nitrogen 16 mg/dL (7-20) 24 mg/dL (7-20) Creatinine 1.3 mg/dL (0.6-1.0) 1.4 mg/dL (0.6-1.0) Estimated GFR (Cockcroft-Gault) 41.8 38.4 BUN/Creatinine Ratio 12 (6-20) Glucose Level 94 mg/dL (70-99) 110 mg/dL (70-99) Calcium Level 9.6 mg/dL (8.5-10.1) 8.7 mg/dL (8.5-10.1) Total Bilirubin 0.4 mg/dL (0.2-1.0) 0.4 mg/dL (0.2-1.0) Aspartate Amino Transf (AST/SGOT) 22 U/L (15-37) 60 U/L (15-37) Alanine Aminotransferase (ALT/SGPT) 21 U/L (14-59) 54 U/L (14-59) Alkaline Phosphatase 77 U/L (46-116) 79 U/L (46-116) Total Protein 7.3 g/dL (6.4-8.2) 6.0 g/dL (6.4-8.2) Albumin 3.3 g/dL (3.4-5.0) 2.5 g/dL (3.4-5.0) Albumin/Globulin Ratio 0.8 (1.0-1.7) Lipase 87 U/L (73-393) Direct Bilirubin 0.2 mg/dL (0.0-0.2) Laboratory Tests Test 05/23/17 05:00 White Blood Count 14.8 x10^3/uL (4.0-11.0) Red Blood Count 3.96 x10^6/uL (3.50-5.40) Hemoglobin 11.2 g/dL (12.0-15.5) Hematocrit 34.1 % (36.0-47.0) Mean Corpuscular Volume 86 fL (79-100) Mean Corpuscular Hemoglobin 28 pg (25-35) Mean Corpuscular Hemoglobin Concent 33 g/dL (31-37) Red Cell Distribution Width 14.1 % (11.5-14.5) Platelet Count 290 x10^3/uL (140-400) Neutrophils (%) (Auto) 91 % (31-73) Lymphocytes (%) (Auto) 4 % (24-48) Monocytes (%) (Auto) 5 % (0-9) Eosinophils (%) (Auto) 0 % (0-3) Basophils (%) (Auto) 0 % (0-3) Neutrophils # (Auto) 13.5 x10^3uL (1.8-7.7) Lymphocytes # (Auto) 0.6 x10^3/uL (1.0-4.8) Monocytes # (Auto) 0.7 x10^3/uL (0.0-1.1) Eosinophils # (Auto) 0.0 x10^3/uL (0.0-0.7) Basophils # (Auto) 0.0 x10^3/uL (0.0-0.2) Sodium Level 139 mmol/L (136-145) Potassium Level 4.1 mmol/L (3.5-5.1) Chloride Level 104 mmol/L (98-107) Carbon Dioxide Level 27 mmol/L (21-32) Anion Gap 8 (6-14) Blood Urea Nitrogen 24 mg/dL (7-20) Creatinine 1.4 mg/dL (0.6-1.0) Estimated GFR (Cockcroft-Gault) 38.4 Glucose Level 110 mg/dL (70-99) Calcium Level 8.7 mg/dL (8.5-10.1) Total Bilirubin 0.4 mg/dL (0.2-1.0) Direct Bilirubin 0.2 mg/dL (0.0-0.2) Aspartate Amino Transf (AST/SGOT) 60 U/L (15-37) Alanine Aminotransferase (ALT/SGPT) 54 U/L (14-59) Alkaline Phosphatase 79 U/L (46-116) Total Protein 6.0 g/dL (6.4-8.2) Albumin 2.5 g/dL (3.4-5.0) Problem List Problems Medical Problems: (1) Abdominal pain Status: Acute (2) Cholecystitis Status: Acute Assessment/Plan s/p open roni severe cholecystitis continue drain, monitor abx, labs Problems: 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
[2017-05-23 11:00] VITALS: BP 101/55
[2017-05-23 11:20] LABS: PLT ESTIMATE ADEQUATE (ADEQUATE)
--- NOTE | 2017-05-23 11:26 | CONS ---
DATE OF CONSULTATION: ATTENDING PHYSICIAN: Dr. Hickman. REASON FOR CONSULTATION: Hypoxia postop. HISTORY OF PRESENT ILLNESS: The patient is a 61-year-old female who is morbidly obese and has history of hypertension, but no significant history of tobacco use. She presented to the hospital with right upper quadrant pain and nausea and vomiting and during the workup was found to have severe cholecystitis. She underwent surgical opinion and initially was planned to have laparoscopic surgery, which converted to open cholecystectomy with cholangiogram. Postop she was hypoxic and required BiPAP transiently and now currently on 2 liters of oxygen. I have been asked to see her for further evaluation. I have ordered a chest x-ray and reviewed the films. She has elevated diaphragms and possible subsegmental atelectasis. The patient is also currently receiving narcotics for pain. She says she has difficulty in exhaling air. PAST MEDICAL HISTORY: Significant for obesity, suspected obstructive sleep apnea. Hypertension. PAST SURGICAL HISTORY: Tonsillectomy at age 7. SOCIAL HISTORY: Nonsmoker. ALLERGIES: None. MEDICATIONS: Reviewed as listed in the MRAD. REVIEW OF SYSTEMS: Twelve-point system obtained. Pertinent positives discussed in history of present illness, otherwise noncontributory. All systems that were negative were reviewed as well. PHYSICAL EXAMINATION: GENERAL: She is awake, following commands. VITAL SIGNS: Stable blood pressure. Pulse ox 94% on 2 liters, afebrile. HEENT: Sclerae nonicteric. NECK: Supple. LUNGS: Diminished breath sounds. CARDIOVASCULAR: Regular rate and rhythm. ABDOMEN: Soft, tender in the right upper quadrant. EXTREMITIES: With no pitting edema. LABORATORY DATA: Reviewed. White cell count 14.8, hemoglobin 11.2 and platelets are 290. IMPRESSION: 1. Postoperative hypoxia, most likely related to hypoventilation from the effect of anesthetic and narcotic pain medication , and underlying obesity contributing to mild basal atelectasis. 2. No significant history of tobacco use. 3. Underlying morbid obesity and suspected obstructive sleep apnea, will benefit from sleep study as an outpatient. 4. Status post open cholecystectomy. RECOMMENDATIONS: 1. Continue present oxygen 2 liters. 2. Narcotics for pain control per Surgery. 3. Add DuoNeb./ IS q 1 hr 4. The patient would benefit from sleep study as an outpatient. 5. We will follow along with you. Discussed with RN. JUANCARLOS MALAVE MD DR: Deric JOB#: [id number] / [id number] [place]
--- NOTE | 2017-05-23 12:34 | RAD ---
AP PORTABLE CHEST Clinical Indication: hypoxia post cholecystectomy. Comparison: CT abdomen and pelvis without contrast, 2 days ago. Findings: The cardiomediastinal silhouette is normal. There are low lung volumes. There is bibasilar atelectasis. There is no pneumothorax. No obvious pleural effusion is appreciated. There is no acute bone abnormality. There appears to be a surgical drain in the right abdomen. IMPRESSION: Low lung volumes. Bibasilar atelectasis.
[2017-05-23] MEDS: IPRATRPIUM/ALBUTEROL 0.5/2.5MG 3 ML NEBU. NEB SCH ×3 (12:53→19:56)
[2017-05-23] MEDS: oxyCODONE IR 5 MG TABLET PO PRN ×2 (14:21→21:50)
[2017-05-23 15:00] VITALS: BP 83/34
[2017-05-23] MEDS ORDERED: IV NORMAL SALINE 1000ML BAG 1,000 ML IV ONE (16:00)
[2017-05-23 19:00] VITALS: BP 97/65
[2017-05-23] MEDS: LACTOBACILLUS RHAMNOSUS GG 1 CAPSULE. PO SCH (20:03)
[2017-05-23 23:00] VITALS: BP 97/52
[2017-05-24 03:00] VITALS: BP 113/74
[2017-05-24 04:28] LABS: BASO % 0 % (0-3); EOS % 3 % (0-3); HEMATOCRIT 30.4 % (36.0-47.0); HEMOGLOBIN 10.2 g/dL (12.0-15.5); LYMPH # 1.7 x10^3/uL (1.0-4.8); LYMPH % 17 % (24-48); MEAN CORPUSCULAR HEMOGLOBIN 29 pg (25-35); MEAN CORPUSCULAR HGB CONC 34 g/dL (31-37); MEAN CORPUSCULAR VOLUME 87 fL (79-100); MONO % 8 % (0-9); NEUT % 72 % (31-73); PLATELET COUNT 253 x10^3/uL (140-400); RED CELL DISTRIBUTION WIDTH 14.8 % (11.5-14.5); WHITE BLOOD COUNT 10.1 x10^3/uL (4.0-11.0)
[2017-05-24 04:48] LABS: ALBUMIN 2.3 g/dL (3.4-5.0); ALBUMIN/GLOBULIN RATIO 0.7 (1.0-1.7); CALCIUM 8.5 mg/dL (8.5-10.1); CREATININE 1.7 mg/dL (0.6-1.0); GFR 30.7; POTASSIUM 3.6 mmol/L (3.5-5.1); TOTAL BILIRUBIN 0.3 mg/dL (0.2-1.0); TOTAL PROTEIN 5.8 g/dL (6.4-8.2)
[2017-05-24] MEDS: IV NORMAL SALINE 1000ML BAG 1,000 ML IV SCH (05:15)
[2017-05-24] MEDS: oxyCODONE IR 5 MG TABLET PO PRN ×4 (05:21→20:37)
[2017-05-24] MEDS: PIPERACILLIN/TAZO IV Push 3.375 GM VIAL. IVP SCH ×3 (05:21→19:21)
[2017-05-24 07:00] VITALS: BP 93/49
[2017-05-24] MEDS: POTASSIUM CL 20MEQ-0.45% NACL 1,000 ML IV SCH ×2 (07:44→19:28)
[2017-05-24] MEDS: IPRATRPIUM/ALBUTEROL 0.5/2.5MG 3 ML NEBU. NEB SCH ×4 (07:57→20:39)
--- NOTE | 2017-05-24 08:52 | PDOC ---
SURGICAL PROGRESS NOTE Subjective taking few clears, poor appetite small amount of flatus pain improving Vital Signs Vital Signs Date Time Temp Pulse Resp B/P (MAP) Pulse Ox O2 Delivery O2 Flow Rate FiO2 05/24/17 08:00 92 Nasal Cannula 2.0 05/24/17 03:00 98.1 74 18 113/74 (87) 98.1 I&O Intake and Output 05/24/17 07:00 Intake Total 2100 ml Output Total 595 ml Balance 1505 ml Intake Oral 100 ml IV Total 2000 ml Output Urine Total 370 ml Drainage Total 225 ml General: Alert, Oriented X3, Cooperative, No acute distress Abdomen: Soft, Other (dressings dry, jareth dark bloody) Labs Laboratory Tests Test 05/23/17 05:00 05/24/17 03:35 White Blood Count 14.8 x10^3/uL (4.0-11.0) 10.1 x10^3/uL (4.0-11.0) Red Blood Count 3.96 x10^6/uL (3.50-5.40) 3.50 x10^6/uL (3.50-5.40) Hemoglobin 11.2 g/dL (12.0-15.5) 10.2 g/dL (12.0-15.5) Hematocrit 34.1 % (36.0-47.0) 30.4 % (36.0-47.0) Mean Corpuscular Volume 86 fL (79-100) 87 fL (79-100) Mean Corpuscular Hemoglobin 28 pg (25-35) 29 pg (25-35) Mean Corpuscular Hemoglobin Concent 33 g/dL (31-37) 34 g/dL (31-37) Red Cell Distribution Width 14.1 % (11.5-14.5) 14.8 % (11.5-14.5) Platelet Count 290 x10^3/uL (140-400) 253 x10^3/uL (140-400) Neutrophils (%) (Auto) 91 % (31-73) 72 % (31-73) Lymphocytes (%) (Auto) 4 % (24-48) 17 % (24-48) Monocytes (%) (Auto) 5 % (0-9) 8 % (0-9) Eosinophils (%) (Auto) 0 % (0-3) 3 % (0-3) Basophils (%) (Auto) 0 % (0-3) 0 % (0-3) Neutrophils # (Auto) 13.5 x10^3uL (1.8-7.7) 7.2 x10^3uL (1.8-7.7) Lymphocytes # (Auto) 0.6 x10^3/uL (1.0-4.8) 1.7 x10^3/uL (1.0-4.8) Monocytes # (Auto) 0.7 x10^3/uL (0.0-1.1) 0.8 x10^3/uL (0.0-1.1) Eosinophils # (Auto) 0.0 x10^3/uL (0.0-0.7) 0.3 x10^3/uL (0.0-0.7) Basophils # (Auto) 0.0 x10^3/uL (0.0-0.2) 0.0 x10^3/uL (0.0-0.2) Segmented Neutrophils % 91 % (35-66) Band Neutrophils % 1 % (0-9) Lymphocytes % 6 % (24-48) Monocytes % 2 % (0-10) Platelet Estimate Adequate (ADEQUATE) Sodium Level 139 mmol/L (136-145) 139 mmol/L (136-145) Potassium Level 4.1 mmol/L (3.5-5.1) 3.6 mmol/L (3.5-5.1) Chloride Level 104 mmol/L (98-107) 105 mmol/L (98-107) Carbon Dioxide Level 27 mmol/L (21-32) 29 mmol/L (21-32) Anion Gap 8 (6-14) 5 (6-14) Blood Urea Nitrogen 24 mg/dL (7-20) 27 mg/dL (7-20) Creatinine 1.4 mg/dL (0.6-1.0) 1.7 mg/dL (0.6-1.0) Estimated GFR (Cockcroft-Gault) 38.4 30.7 Glucose Level 110 mg/dL (70-99) 87 mg/dL (70-99) Calcium Level 8.7 mg/dL (8.5-10.1) 8.5 mg/dL (8.5-10.1) Total Bilirubin 0.4 mg/dL (0.2-1.0) 0.3 mg/dL (0.2-1.0) Direct Bilirubin 0.2 mg/dL (0.0-0.2) Aspartate Amino Transf (AST/SGOT) 60 U/L (15-37) 67 U/L (15-37) Alanine Aminotransferase (ALT/SGPT) 54 U/L (14-59) 43 U/L (14-59) Alkaline Phosphatase 79 U/L (46-116) 63 U/L (46-116) Total Protein 6.0 g/dL (6.4-8.2) 5.8 g/dL (6.4-8.2) Albumin 2.5 g/dL (3.4-5.0) 2.3 g/dL (3.4-5.0) BUN/Creatinine Ratio 16 (6-20) Albumin/Globulin Ratio 0.7 (1.0-1.7) Laboratory Tests Test 05/24/17 03:35 White Blood Count 10.1 x10^3/uL (4.0-11.0) Red Blood Count 3.50 x10^6/uL (3.50-5.40) Hemoglobin 10.2 g/dL (12.0-15.5) Hematocrit 30.4 % (36.0-47.0) Mean Corpuscular Volume 87 fL (79-100) Mean Corpuscular Hemoglobin 29 pg (25-35) Mean Corpuscular Hemoglobin Concent 34 g/dL (31-37) Red Cell Distribution Width 14.8 % (11.5-14.5) Platelet Count 253 x10^3/uL (140-400) Neutrophils (%) (Auto) 72 % (31-73) Lymphocytes (%) (Auto) 17 % (24-48) Monocytes (%) (Auto) 8 % (0-9) Eosinophils (%) (Auto) 3 % (0-3) Basophils (%) (Auto) 0 % (0-3) Neutrophils # (Auto) 7.2 x10^3uL (1.8-7.7) Lymphocytes # (Auto) 1.7 x10^3/uL (1.0-4.8) Monocytes # (Auto) 0.8 x10^3/uL (0.0-1.1) Eosinophils # (Auto) 0.3 x10^3/uL (0.0-0.7) Basophils # (Auto) 0.0 x10^3/uL (0.0-0.2) Sodium Level 139 mmol/L (136-145) Potassium Level 3.6 mmol/L (3.5-5.1) Chloride Level 105 mmol/L (98-107) Carbon Dioxide Level 29 mmol/L (21-32) Anion Gap 5 (6-14) Blood Urea Nitrogen 27 mg/dL (7-20) Creatinine 1.7 mg/dL (0.6-1.0) Estimated GFR (Cockcroft-Gault) 30.7 BUN/Creatinine Ratio 16 (6-20) Glucose Level 87 mg/dL (70-99) Calcium Level 8.5 mg/dL (8.5-10.1) Total Bilirubin 0.3 mg/dL (0.2-1.0) Aspartate Amino Transf (AST/SGOT) 67 U/L (15-37) Alanine Aminotransferase (ALT/SGPT) 43 U/L (14-59) Alkaline Phosphatase 63 U/L (46-116) Total Protein 5.8 g/dL (6.4-8.2) Albumin 2.3 g/dL (3.4-5.0) Albumin/Globulin Ratio 0.7 (1.0-1.7) Problem List Problems Medical Problems: (1) Abdominal pain Status: Acute (2) Cholecystitis Status: Acute Assessment/Plan s/p open roni drain, abx noted cr 1.7--hydration as per IPC 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
[2017-05-24] MEDS: LISINOPRIL 20 MG TABLET PO SCH (09:00)
[2017-05-24] MEDS: DOCUSATE SODIUM 100 MG CAPSULE. PO SCH ×2 (10:17→20:36)
[2017-05-24] MEDS: LACTOBACILLUS RHAMNOSUS GG 1 CAPSULE. PO SCH ×2 (10:17→20:37)
[2017-05-24] MEDS: ENOXAPARIN 40 MG/0.4 ML SYRINGE. SQ SCH ×2 (10:25→20:37)
[2017-05-24 11:00] VITALS: BP 112/61
--- NOTE | 2017-05-24 11:18 | PDOC ---
PROGRESS NOTES Chief Complaint Chief Complaint RUQ abd pain ASSESSMENT AND PLAN: 1. Cholecystitis: s/p CCY, lap converted to open, on 05/22 2. Pain control: difficult; IV/PO narcotics PRN 3. Hypoxia: acute on chronic; needed BIPAP post surg, as well as add.l O2 when sleeping. ?obesity induced hypoventilation vs underlying lung dz; not a smoker. pulm consult 4. Nutrition: on clears; advance as per surg team 5. HTN: well controlled on lisinopril 6. Leukocytosis: reactive. monitor 7. Hypokalemia: resolved. 8. PCM: mild, hypoalbuminemia exacerbated by inflammation. 9. Prophylaxis: History of Present Illness History of Present Illness SOme flatus Looks better today than initial GS visit today CLaims willing to try some GI soft for lunch Creat jumped to 1.7 from 1.2 K withiin normal range now BP lowish SIde, no sxs Pulmo note reviewed, CXR shows atelectasis PLAN: Inc current IVF rate Renal panel tmr IS Cont duonebs Dw her and family ADAt if sx ok Vitals Vitals Vital Signs Date Time Temp Pulse Resp B/P (MAP) Pulse Ox O2 Delivery O2 Flow Rate FiO2 05/24/17 10:35 20 92 Nasal Cannula 2.0 05/24/17 09:00 75 112/61 05/24/17 07:00 98.4 98.4 Physical Exam General: Alert, Oriented X3, Cooperative, No acute distress Heart: Regular rate, No murmurs Lungs: Clear Abdomen: Soft, Other (dressings dry, jareth dark bloody) Extremities: Other (dressing dry, jareth bilious tinge) Skin: No rashes Labs LABS Laboratory Tests Test 05/24/17 03:35 White Blood Count 10.1 x10^3/uL (4.0-11.0) Red Blood Count 3.50 x10^6/uL (3.50-5.40) Hemoglobin 10.2 g/dL (12.0-15.5) Hematocrit 30.4 % (36.0-47.0) Mean Corpuscular Volume 87 fL (79-100) Mean Corpuscular Hemoglobin 29 pg (25-35) Mean Corpuscular Hemoglobin Concent 34 g/dL (31-37) Red Cell Distribution Width 14.8 % (11.5-14.5) Platelet Count 253 x10^3/uL (140-400) Neutrophils (%) (Auto) 72 % (31-73) Lymphocytes (%) (Auto) 17 % (24-48) Monocytes (%) (Auto) 8 % (0-9) Eosinophils (%) (Auto) 3 % (0-3) Basophils (%) (Auto) 0 % (0-3) Neutrophils # (Auto) 7.2 x10^3uL (1.8-7.7) Lymphocytes # (Auto) 1.7 x10^3/uL (1.0-4.8) Monocytes # (Auto) 0.8 x10^3/uL (0.0-1.1) Eosinophils # (Auto) 0.3 x10^3/uL (0.0-0.7) Basophils # (Auto) 0.0 x10^3/uL (0.0-0.2) Sodium Level 139 mmol/L (136-145) Potassium Level 3.6 mmol/L (3.5-5.1) Chloride Level 105 mmol/L (98-107) Carbon Dioxide Level 29 mmol/L (21-32) Anion Gap 5 (6-14) Blood Urea Nitrogen 27 mg/dL (7-20) Creatinine 1.7 mg/dL (0.6-1.0) Estimated GFR (Cockcroft-Gault) 30.7 BUN/Creatinine Ratio 16 (6-20) Glucose Level 87 mg/dL (70-99) Calcium Level 8.5 mg/dL (8.5-10.1) Total Bilirubin 0.3 mg/dL (0.2-1.0) Aspartate Amino Transf (AST/SGOT) 67 U/L (15-37) Alanine Aminotransferase (ALT/SGPT) 43 U/L (14-59) Alkaline Phosphatase 63 U/L (46-116) Total Protein 5.8 g/dL (6.4-8.2) Albumin 2.3 g/dL (3.4-5.0) Albumin/Globulin Ratio 0.7 (1.0-1.7) Review of Systems Review of Systems some abd pain, no cp, soa, or emesis Assessment and Plan Assessmemt and Plan Problems Medical Problems: (1) Abdominal pain Status: Acute (2) Cholecystitis Status: Acute Problems: Comment Review of Relevant I have reviewed the following items simon (where applicable) has been applied. Labs Laboratory Tests Test 05/23/17 05:00 05/24/17 03:35 White Blood Count 14.8 x10^3/uL (4.0-11.0) 10.1 x10^3/uL (4.0-11.0) Red Blood Count 3.96 x10^6/uL (3.50-5.40) 3.50 x10^6/uL (3.50-5.40) Hemoglobin 11.2 g/dL (12.0-15.5) 10.2 g/dL (12.0-15.5) Hematocrit 34.1 % (36.0-47.0) 30.4 % (36.0-47.0) Mean Corpuscular Volume 86 fL (79-100) 87 fL (79-100) Mean Corpuscular Hemoglobin 28 pg (25-35) 29 pg (25-35) Mean Corpuscular Hemoglobin Concent 33 g/dL (31-37) 34 g/dL (31-37) Red Cell Distribution Width 14.1 % (11.5-14.5) 14.8 % (11.5-14.5) Platelet Count 290 x10^3/uL (140-400) 253 x10^3/uL (140-400) Neutrophils (%) (Auto) 91 % (31-73) 72 % (31-73) Lymphocytes (%) (Auto) 4 % (24-48) 17 % (24-48) Monocytes (%) (Auto) 5 % (0-9) 8 % (0-9) Eosinophils (%) (Auto) 0 % (0-3) 3 % (0-3) Basophils (%) (Auto) 0 % (0-3) 0 % (0-3) Neutrophils # (Auto) 13.5 x10^3uL (1.8-7.7) 7.2 x10^3uL (1.8-7.7) Lymphocytes # (Auto) 0.6 x10^3/uL (1.0-4.8) 1.7 x10^3/uL (1.0-4.8) Monocytes # (Auto) 0.7 x10^3/uL (0.0-1.1) 0.8 x10^3/uL (0.0-1.1) Eosinophils # (Auto) 0.0 x10^3/uL (0.0-0.7) 0.3 x10^3/uL (0.0-0.7) Basophils # (Auto) 0.0 x10^3/uL (0.0-0.2) 0.0 x10^3/uL (0.0-0.2) Segmented Neutrophils % 91 % (35-66) Band Neutrophils % 1 % (0-9) Lymphocytes % 6 % (24-48) Monocytes % 2 % (0-10) Platelet Estimate Adequate (ADEQUATE) Sodium Level 139 mmol/L (136-145) 139 mmol/L (136-145) Potassium Level 4.1 mmol/L (3.5-5.1) 3.6 mmol/L (3.5-5.1) Chloride Level 104 mmol/L (98-107) 105 mmol/L (98-107) Carbon Dioxide Level 27 mmol/L (21-32) 29 mmol/L (21-32) Anion Gap 8 (6-14) 5 (6-14) Blood Urea Nitrogen 24 mg/dL (7-20) 27 mg/dL (7-20) Creatinine 1.4 mg/dL (0.6-1.0) 1.7 mg/dL (0.6-1.0) Estimated GFR (Cockcroft-Gault) 38.4 30.7 Glucose Level 110 mg/dL (70-99) 87 mg/dL (70-99) Calcium Level 8.7 mg/dL (8.5-10.1) 8.5 mg/dL (8.5-10.1) Total Bilirubin 0.4 mg/dL (0.2-1.0) 0.3 mg/dL (0.2-1.0) Direct Bilirubin 0.2 mg/dL (0.0-0.2) Aspartate Amino Transf (AST/SGOT) 60 U/L (15-37) 67 U/L (15-37) Alanine Aminotransferase (ALT/SGPT) 54 U/L (14-59) 43 U/L (14-59) Alkaline Phosphatase 79 U/L (46-116) 63 U/L (46-116) Total Protein 6.0 g/dL (6.4-8.2) 5.8 g/dL (6.4-8.2) Albumin 2.5 g/dL (3.4-5.0) 2.3 g/dL (3.4-5.0) BUN/Creatinine Ratio 16 (6-20) Albumin/Globulin Ratio 0.7 (1.0-1.7) Laboratory Tests Test 05/24/17 03:35 White Blood Count 10.1 x10^3/uL (4.0-11.0) Red Blood Count 3.50 x10^6/uL (3.50-5.40) Hemoglobin 10.2 g/dL (12.0-15.5) Hematocrit 30.4 % (36.0-47.0) Mean Corpuscular Volume 87 fL (79-100) Mean Corpuscular Hemoglobin 29 pg (25-35) Mean Corpuscular Hemoglobin Concent 34 g/dL (31-37) Red Cell Distribution Width 14.8 % (11.5-14.5) Platelet Count 253 x10^3/uL (140-400) Neutrophils (%) (Auto) 72 % (31-73) Lymphocytes (%) (Auto) 17 % (24-48) Monocytes (%) (Auto) 8 % (0-9) Eosinophils (%) (Auto) 3 % (0-3) Basophils (%) (Auto) 0 % (0-3) Neutrophils # (Auto) 7.2 x10^3uL (1.8-7.7) Lymphocytes # (Auto) 1.7 x10^3/uL (1.0-4.8) Monocytes # (Auto) 0.8 x10^3/uL (0.0-1.1) Eosinophils # (Auto) 0.3 x10^3/uL (0.0-0.7) Basophils # (Auto) 0.0 x10^3/uL (0.0-0.2) Sodium Level 139 mmol/L (136-145) Potassium Level 3.6 mmol/L (3.5-5.1) Chloride Level 105 mmol/L (98-107) Carbon Dioxide Level 29 mmol/L (21-32) Anion Gap 5 (6-14) Blood Urea Nitrogen 27 mg/dL (7-20) Creatinine 1.7 mg/dL (0.6-1.0) Estimated GFR (Cockcroft-Gault) 30.7 BUN/Creatinine Ratio 16 (6-20) Glucose Level 87 mg/dL (70-99) Calcium Level 8.5 mg/dL (8.5-10.1) Total Bilirubin 0.3 mg/dL (0.2-1.0) Aspartate Amino Transf (AST/SGOT) 67 U/L (15-37) Alanine Aminotransferase (ALT/SGPT) 43 U/L (14-59) Alkaline Phosphatase 63 U/L (46-116) Total Protein 5.8 g/dL (6.4-8.2) Albumin 2.3 g/dL (3.4-5.0) Albumin/Globulin Ratio 0.7 (1.0-1.7) Microbiology 05/21/17 Urine Culture - Final, Complete 05/21/17 Urine Culture Result 1 (KOFI) - Final, Complete Medications Current Medications Fentanyl Citrate (Fentanyl 2ml Vial) 75 mcg 1X ONCE IV Last administered on 12:25; Start 05/21/17 at 12:00; Stop 05/21/17 at 12:01; Status DC Ondansetron HCl (Zofran) 4 mg 1X ONCE IV Last administered on 05/21/17 12:24 ; Start 05/21/17 at 12:00; Stop 05/21/17 at 12:01; Status DC Iohexol (Omnipaque 300 Mg/ml) 75 ml 1X ONCE IV ; Start 05/21/17 at 12:00; Stop 05/21/17 at 12:01; Status DC Iohexol (Omnipaque 240 Mg/ml) 30 ml 1X ONCE PO Last administered on t 13:48; Start 05/21/17 at 13:00; Stop 05/21/17 at 13:01; Status DC Info (Do NOT chart on this entry -- for MONITORING) 1 each PRN DAILY PRN MC SEE COMMENTS; Start 05/21/17 at 13:00; Stop 05/23/17 at 12:59; Status DC Piperacillin Sod/ Tazobactam Sod 3.375 gm/Dextrose 50 ml @ 100 mls/hr 1X ONCE IV ; Start 05/21/17 at 14:45; Stop 05/21/17 at 15:14; Status Cancel Piperacillin Sod/ Tazobactam Sod (Zosyn) 3.375 gm 1X IVP ; Start 05/21/17 at 14 :45; Stop 05/21/17 at 15:22; Status DC Piperacillin Sod/ Tazobactam Sod (Zosyn) 3.375 gm 1X ONCE IVP Last administered on 05/21/17 15:25; Start 05/21/17 at 15:30; Stop 05/21/17 at 15 :31; Status DC Ondansetron HCl (Zofran) 4 mg PRN Q6HRS PRN IV NAUSEA/VOMITING Last administered on 05/23/17 03:04; Start 05/21/17 at 16:00 Morphine Sulfate 2 mg PRN Q2HR PRN IV PAIN Last administered on 05/23/17 03: 03; Start 05/21/17 at 16:00 Piperacillin Sod/ Tazobactam Sod (Zosyn Per Pharmacy) 1 each PRN DAILY PRN MC SEE COMMENTS; Start 05/21/17 at 16:00 Potassium Chloride/Sodium Chloride 1,000 ml @ 100 mls/hr Q10H IV Last administered on 05/24/17 07:44; Start 05/21/17 at 16:30 Piperacillin Sod/ Tazobactam Sod (Zosyn) 3.375 gm Q6HRS IVP Last administered on 05/24/17 05:21; Start 05/21/17 at 23:00 Info (Do NOT chart on this placeholder) 0.5 each 1X ONCE MC ; Start 05/21/17 at 19:30; Stop 05/21/17 at 19:31; Status UNV Influenza Virus Vaccine Quadrival (Fluarix Quad [id number] Syringe) 0.5 ml ONCE ONCE VAX IM Last administered on 05/22/17 21:00; Start 05/21/17 at 20:00; Stop 05/21/17 at 20:01; Status DC Metoclopramide HCl (Reglan Vial) 10 mg PRN Q6HRS PRN IV NAUSEA/VOMITING Last administered on 05/21/17 21:02; Start 05/21/17 at 20:15 Lisinopril (Prinivil) 20 mg DAILY PO Last administered on 05/22/17 10:02; Start 05/22/17 at 09:00 Cefazolin Sodium/ Dextrose 50 ml @ 100 mls/hr 1X PREOP ONCE IV ; Start at 09:00; Stop 05/22/17 at 09:29; Status DC Ondansetron HCl (Zofran) 4 mg PRN Q6HRS PRN IV NAUSEA/VOMITING Last administered on 05/22/17 14:24; Start 05/22/17 at 07:30; Stop 05/23/17 at 07 :29; Status DC Fentanyl Citrate (Fentanyl 2ml Vial) 25 mcg PRN Q5MIN PRN IV MILD PAIN Last administered on 05/22/17 14:34; Start 05/22/17 at 07:30; Stop 05/23/17 at 07 :29; Status DC Fentanyl Citrate (Fentanyl 2ml Vial) 50 mcg PRN Q5MIN PRN IV MODERATE PAIN; Start 05/22/17 at 07:30; Stop 05/23/17 at 07:29; Status DC Morphine Sulfate 1 mg PRN Q10MIN PRN IV SEVERE PAIN; Start 05/22/17 at 07:30; Stop 05/23/17 at 07:29; Status DC Ringer's Solution 1,000 ml @ 30 mls/hr Q24H IV Last administered on 10:15; Start 05/22/17 at 07:28; Stop 05/22/17 at 19:27; Status DC Lidocaine HCl (Xylocaine-Mpf 1% Vial) 2 ml 1X PRN PRN ID IV START; Start 05/22 at 07:30; Stop 05/23/17 at 07:29; Status DC Hydromorphone HCl (Dilaudid) 0.5 mg PRN Q10MIN PRN IV SEV PAIN, Second choice; Start 05/22/17 at 07:30; Stop 05/23/17 at 07:29; Status DC Iohexol (Omnipaque 300 Mg/ml) 50 ml STK-MED ONCE .ROUTE Last administered on 11:20; Start 05/22/17 at 10:27; Stop 05/22/17 at 10:28; Status DC Bupivacaine HCl/ Epinephrine Bitart (Sensorcain-Mpf Epi 0.5%-1:[id number]) 30 ml STK -MED ONCE .ROUTE Last administered on 05/22/17 11:20; Start 05/22/17 at 10: 27; Stop 05/22/17 at 10:28; Status DC Cellulose 1 each STK-MED ONCE .ROUTE Last administered on 05/22/17 11:20; Start 05/22/17 at 10:27; Stop 05/22/17 at 10:28; Status DC Heparin Sodium (Porcine) (Heparin Sodium) 10,000 unit STK-MED ONCE .ROUTE Last administered on 05/22/17 11:20; Start 05/22/17 at 10:28; Stop 05/22/17 at 10 :29; Status DC Bisacodyl (Dulcolax Supp) 10 mg STK-MED ONCE .ROUTE Last administered on 11:20; Start 05/22/17 at 10:28; Stop 05/22/17 at 10:29; Status DC Neostigmine Methylsulfate (Bloxiverz) 10 mg STK-MED ONCE .ROUTE ; Start at 10:29; Stop 05/22/17 at 10:30; Status DC Rocuronium [place] (Zemuron) 50 mg STK-MED ONCE .ROUTE ; Start 05/22/17 at 10: 29; Stop 05/22/17 at 10:30; Status DC Fentanyl Citrate (Fentanyl 2ml Vial) 100 mcg STK-MED ONCE .ROUTE ; Start at 10:30; Stop 05/22/17 at 10:31; Status DC Midazolam HCl (Versed) 2 mg STK-MED ONCE .ROUTE ; Start 05/22/17 at 10:30; Stop 05/22/17 at 10:31; Status DC Glycopyrrolate (Robinul) 1 mg STK-MED ONCE .ROUTE ; Start 05/22/17 at 10:30; Stop 05/22/17 at 10:31; Status DC Propofol 20 ml @ As Directed STK-MED ONCE IV ; Start 05/22/17 at 10:30; Stop 05/22/17 at 10:31; Status DC Ondansetron HCl (Zofran) 4 mg STK-MED ONCE .ROUTE ; Start 05/22/17 at 10:30; Stop 05/22/17 at 10:31; Status DC Dexamethasone Sodium Phosphate (Decadron) 20 mg STK-MED ONCE .ROUTE ; Start at 10:30; Stop 05/22/17 at 10:31; Status DC Lidocaine HCl (Lidocaine Pf 2% Vial) 5 ml STK-MED ONCE .ROUTE ; Start 05/22/17 at 10:30; Stop 05/22/17 at 10:31; Status DC Scopolamine (Transderm-Scop) 1 patch STK-MED ONCE TD ; Start 05/22/17 at 10:34 ; Stop 05/22/17 at 10:35; Status DC Ephedrine Sulfate (Akovaz) 50 mg STK-MED ONCE .ROUTE ; Start 05/22/17 at 11:08 ; Stop 05/22/17 at 11:09; Status DC Phenylephrine HCl 1 mg STK-MED ONCE IV ; Start 05/22/17 at 11:15; Stop at 11:16; Status DC Fentanyl Citrate (Fentanyl 2ml Vial) 100 mcg STK-MED ONCE .ROUTE ; Start at 11:49; Stop 05/22/17 at 11:50; Status DC Desflurane (Suprane) 60 ml STK-MED ONCE IH ; Start 05/22/17 at 11:55; Stop at 11:56; Status DC Fentanyl Citrate (Fentanyl 2ml Vial) 100 mcg STK-MED ONCE .ROUTE ; Start at 12:08; Stop 05/22/17 at 12:09; Status DC Rocuronium [place] (Zemuron) 50 mg STK-MED ONCE .ROUTE ; Start 05/22/17 at 12: 12; Stop 05/22/17 at 12:13; Status DC Morphine Sulfate 10 mg STK-MED ONCE .ROUTE ; Start 05/22/17 at 12:27; Stop at 12:28; Status DC Fentanyl Citrate (Fentanyl 2ml Vial) 100 mcg STK-MED ONCE .ROUTE ; Start at 12:29; Stop 05/22/17 at 12:30; Status DC Enoxaparin Sodium (Lovenox 40mg Syringe) 40 mg Q12HR SQ Last administered on t 10:25; Start 05/22/17 at 21:00 Sodium Chloride (Normal Saline Flush) 3 ml QSHIFT PRN IV AFTER MEDS AND BLOOD DRAWS; Start 05/22/17 at 13:00 Ringer's Solution 1,000 ml @ 100 mls/hr Q10H IV ; Start 05/22/17 at 12:57; Stop 05/23/17 at 09:18; Status DC Dextrose (Dextrose 50%-Water Syringe) 12.5 gm PRN Q15MIN PRN IV SEE COMMENTS; Start 05/22/17 at 13:00 Acetaminophen/ Hydrocodone Bitart (Lortab 5/325) 1 tab PRN Q4HRS PRN PO MILD PAIN Last administered on 05/23/17 09:06; Start 05/22/17 at 13:00; Stop at 09:18; Status DC Ketorolac Tromethamine (Toradol) 30 mg PRN Q6HRS PRN IV PAIN Last administered on 05/23/17 17:44; Start 05/22/17 at 13:00; Stop 05/27/17 at 12:59 Morphine Sulfate 1 mg PRN Q1HR PRN IV PAIN; Start 05/22/17 at 13:00 Docusate Sodium (Colace) 100 mg BID PO Last administered on 05/24/17t 10:17; Start 05/22/17 at 21:00 Ondansetron HCl (Zofran) 4 mg PRN Q6HRS PRN IV NAUESA, 1ST CHOICE; Start 05/22 at 13:00 Albuterol Sulfate (Ventolin Neb Soln) 2.5 mg 1X PACU PRN NEB COUGH; Start at 13:15 Fentanyl Citrate (Fentanyl 2ml Vial) 100 mcg STK-MED ONCE .ROUTE ; Start at 13:17; Stop 05/22/17 at 13:18; Status DC Albuterol Sulfate (Ventolin Neb Soln) 2.5 mg STK-MED ONCE .ROUTE ; Start at 13:17; Stop 05/22/17 at 13:18; Status DC Sodium Chloride 1,000 ml @ 50 mls/hr Q20H IV ; Start 05/23/17 at 09:15; Stop 05/24/17 at 07:02; Status DC Oxycodone HCl (Roxicodone) 5 mg PRN Q4HRS PRN PO PAIN; Start 05/23/17 at 09:15 Oxycodone HCl (Roxicodone) 10 mg PRN Q4HRS PRN PO PAIN Last administered on 10:35; Start 05/23/17 at 09:30 Lactobacillus Rhamnosus (Culturelle) 1 cap BID PO Last administered on 10:17; Start 05/23/17 at 21:00 Albuterol/ Ipratropium (Duoneb) 3 ml RTQID NEB Last administered on 05/24/17 07:57; Start 05/23/17 at 12:00 Sodium Chloride 1,000 ml @ 1,000 mls/hr 1X ONCE IV Last administered on 05/23 16:00; Start 05/23/17 at 16:00; Stop 05/23/17 at 16:59; Status DC Active Scripts Active Reported Lisinopril-Hctz 20-25 Mg Tab (Lisinopril/Hydrochlorothiazide) 1 Each Tablet 1 Tab PO DAILY Vitals/I & O Vital Sign - Last 24 Hours 05/23/17 05/23/17 05/23/17 05/23/17 12:53 14:21 15:00 15:46 Temp 98.8 98.8 Pulse 75 Resp 18 B/P (MAP) 83/34 (50) Pulse Ox 95 93 O2 Delivery Nasal Cannula Nasal Cannula Nasal Cannula Nasal Cannula O2 Flow Rate 1.0 2.0 1.0 05/23/17 05/23/17 05/23/17 05/23/17 19:00 19:57 20:00 21:50 Temp 98.5 98.5 Pulse 80 Resp 20 B/P (MAP) 97/65 (76) Pulse Ox 91 95 95 O2 Delivery Nasal Cannula Nasal Cannula Nasal Cannula Nasal Cannula O2 Flow Rate 1.0 2.0 2.0 05/23/17 05/24/17 05/24/17 05/24/17 23:00 03:00 05:21 06:21 Temp 98.1 98.1 98.1 98.1 Pulse 79 74 Resp 18 18 B/P (MAP) 97/52 (67) 113/74 (87) Pulse Ox 92 93 92 92 O2 Delivery Nasal Cannula Nasal Cannula Nasal Cannula Nasal Cannula O2 Flow Rate 2.0 2.0 05/24/17 05/24/17 05/24/17 05/24/17 07:00 08:00 08:00 09:00 Temp 98.4 98.4 Pulse 75 75 Resp 18 B/P (MAP) 93/49 (64) 112/61 Pulse Ox 91 92 O2 Delivery Nasal Cannula Nasal Cannula Nasal Cannula O2 Flow Rate 2.0 2.0 05/24/17 10:35 Resp 20 Pulse Ox 92 O2 Delivery Nasal Cannula O2 Flow Rate 2.0 Intake and Output 05/23/17 05/23/17 05/24/17 15:00 23:00 07:00 Intake Total 1100 ml 1000 ml Output Total 150 ml 295 ml 150 ml Balance -150 ml 805 ml 850 ml HAFSA ELLIS MD May 24, 2017 11:18
--- NOTE | 2017-05-24 13:28 | PDOC ---
PULMONARY PROGRESS NOTES Subjective PT FEELS BETTER LESS SOA Vitals Vital Signs Date Time Temp Pulse Resp B/P (MAP) Pulse Ox O2 Delivery O2 Flow Rate FiO2 05/24/17 11:48 Nasal Cannula 2.0 05/24/17 11:35 20 95 05/24/17 11:00 98.2 73 112/61 (78) 98.2 ROS: No Nausea, No Chest Pain, No Increase Cough Lungs: Clear Cardiovascular: S1, S2 Abdomen: Soft Neuro Exam: Alert Extremities: No Edema Skin: Warm Labs Laboratory Tests Test 05/23/17 05:00 05/24/17 03:35 White Blood Count 14.8 x10^3/uL (4.0-11.0) 10.1 x10^3/uL (4.0-11.0) Red Blood Count 3.96 x10^6/uL (3.50-5.40) 3.50 x10^6/uL (3.50-5.40) Hemoglobin 11.2 g/dL (12.0-15.5) 10.2 g/dL (12.0-15.5) Hematocrit 34.1 % (36.0-47.0) 30.4 % (36.0-47.0) Mean Corpuscular Volume 86 fL (79-100) 87 fL (79-100) Mean Corpuscular Hemoglobin 28 pg (25-35) 29 pg (25-35) Mean Corpuscular Hemoglobin Concent 33 g/dL (31-37) 34 g/dL (31-37) Red Cell Distribution Width 14.1 % (11.5-14.5) 14.8 % (11.5-14.5) Platelet Count 290 x10^3/uL (140-400) 253 x10^3/uL (140-400) Neutrophils (%) (Auto) 91 % (31-73) 72 % (31-73) Lymphocytes (%) (Auto) 4 % (24-48) 17 % (24-48) Monocytes (%) (Auto) 5 % (0-9) 8 % (0-9) Eosinophils (%) (Auto) 0 % (0-3) 3 % (0-3) Basophils (%) (Auto) 0 % (0-3) 0 % (0-3) Neutrophils # (Auto) 13.5 x10^3uL (1.8-7.7) 7.2 x10^3uL (1.8-7.7) Lymphocytes # (Auto) 0.6 x10^3/uL (1.0-4.8) 1.7 x10^3/uL (1.0-4.8) Monocytes # (Auto) 0.7 x10^3/uL (0.0-1.1) 0.8 x10^3/uL (0.0-1.1) Eosinophils # (Auto) 0.0 x10^3/uL (0.0-0.7) 0.3 x10^3/uL (0.0-0.7) Basophils # (Auto) 0.0 x10^3/uL (0.0-0.2) 0.0 x10^3/uL (0.0-0.2) Segmented Neutrophils % 91 % (35-66) Band Neutrophils % 1 % (0-9) Lymphocytes % 6 % (24-48) Monocytes % 2 % (0-10) Platelet Estimate Adequate (ADEQUATE) Sodium Level 139 mmol/L (136-145) 139 mmol/L (136-145) Potassium Level 4.1 mmol/L (3.5-5.1) 3.6 mmol/L (3.5-5.1) Chloride Level 104 mmol/L (98-107) 105 mmol/L (98-107) Carbon Dioxide Level 27 mmol/L (21-32) 29 mmol/L (21-32) Anion Gap 8 (6-14) 5 (6-14) Blood Urea Nitrogen 24 mg/dL (7-20) 27 mg/dL (7-20) Creatinine 1.4 mg/dL (0.6-1.0) 1.7 mg/dL (0.6-1.0) Estimated GFR (Cockcroft-Gault) 38.4 30.7 Glucose Level 110 mg/dL (70-99) 87 mg/dL (70-99) Calcium Level 8.7 mg/dL (8.5-10.1) 8.5 mg/dL (8.5-10.1) Total Bilirubin 0.4 mg/dL (0.2-1.0) 0.3 mg/dL (0.2-1.0) Direct Bilirubin 0.2 mg/dL (0.0-0.2) Aspartate Amino Transf (AST/SGOT) 60 U/L (15-37) 67 U/L (15-37) Alanine Aminotransferase (ALT/SGPT) 54 U/L (14-59) 43 U/L (14-59) Alkaline Phosphatase 79 U/L (46-116) 63 U/L (46-116) Total Protein 6.0 g/dL (6.4-8.2) 5.8 g/dL (6.4-8.2) Albumin 2.5 g/dL (3.4-5.0) 2.3 g/dL (3.4-5.0) BUN/Creatinine Ratio 16 (6-20) Albumin/Globulin Ratio 0.7 (1.0-1.7) Laboratory Tests Test 05/24/17 03:35 White Blood Count 10.1 x10^3/uL (4.0-11.0) Red Blood Count 3.50 x10^6/uL (3.50-5.40) Hemoglobin 10.2 g/dL (12.0-15.5) Hematocrit 30.4 % (36.0-47.0) Mean Corpuscular Volume 87 fL (79-100) Mean Corpuscular Hemoglobin 29 pg (25-35) Mean Corpuscular Hemoglobin Concent 34 g/dL (31-37) Red Cell Distribution Width 14.8 % (11.5-14.5) Platelet Count 253 x10^3/uL (140-400) Neutrophils (%) (Auto) 72 % (31-73) Lymphocytes (%) (Auto) 17 % (24-48) Monocytes (%) (Auto) 8 % (0-9) Eosinophils (%) (Auto) 3 % (0-3) Basophils (%) (Auto) 0 % (0-3) Neutrophils # (Auto) 7.2 x10^3uL (1.8-7.7) Lymphocytes # (Auto) 1.7 x10^3/uL (1.0-4.8) Monocytes # (Auto) 0.8 x10^3/uL (0.0-1.1) Eosinophils # (Auto) 0.3 x10^3/uL (0.0-0.7) Basophils # (Auto) 0.0 x10^3/uL (0.0-0.2) Sodium Level 139 mmol/L (136-145) Potassium Level 3.6 mmol/L (3.5-5.1) Chloride Level 105 mmol/L (98-107) Carbon Dioxide Level 29 mmol/L (21-32) Anion Gap 5 (6-14) Blood Urea Nitrogen 27 mg/dL (7-20) Creatinine 1.7 mg/dL (0.6-1.0) Estimated GFR (Cockcroft-Gault) 30.7 BUN/Creatinine Ratio 16 (6-20) Glucose Level 87 mg/dL (70-99) Calcium Level 8.5 mg/dL (8.5-10.1) Total Bilirubin 0.3 mg/dL (0.2-1.0) Aspartate Amino Transf (AST/SGOT) 67 U/L (15-37) Alanine Aminotransferase (ALT/SGPT) 43 U/L (14-59) Alkaline Phosphatase 63 U/L (46-116) Total Protein 5.8 g/dL (6.4-8.2) Albumin 2.3 g/dL (3.4-5.0) Albumin/Globulin Ratio 0.7 (1.0-1.7) Medications Active Scripts Medications Dose Route/Sig Max Daily Dose Days Date Category Lisinopril-Hctz 20-25 Mg Tab (Lisinopril/Hydrochlorothiazide) 1 Each Tablet 1 Tab PO DAILY 05/21/17 Reported Impression . 1. EXPECTED RESP FAILURE AFTER SURGERY 2. No significant history of tobacco use. 3. Underlying morbid obesity and suspected obstructive sleep apnea, will benefit from sleep study as an outpatient. 4. Status post open cholecystectomy. Plan . AGGRESSIVE POST OP CARE 1. Continue present oxygen 2 liters. 2. Narcotics for pain control per Surgery. 3. Add DuoNeb./ IS q 1 hr 4. The patient would benefit from sleep study as an outpatient. . CHRISTIANE BARBOSA MD May 24, 2017 13:28
[2017-05-24 15:07] VITALS: BP 100/42
[2017-05-24 19:00] VITALS: BP 133/80
[2017-05-24 23:00] VITALS: BP 98/63
[2017-05-25] MEDS: PIPERACILLIN/TAZO IV Push 3.375 GM VIAL. IVP SCH ×3 (00:29→07:13)
[2017-05-25 03:00] VITALS: BP 115/64
[2017-05-25 05:49] LABS: ALBUMIN 2.2 g/dL (3.4-5.0); CALCIUM 8.5 mg/dL (8.5-10.1); CREATININE 1.3 mg/dL (0.6-1.0); GFR 41.8; PHOSPHORUS 2.8 mg/dL (2.6-4.7); POTASSIUM 4.1 mmol/L (3.5-5.1)
[2017-05-25] MEDS: POTASSIUM CL 20MEQ-0.45% NACL 1,000 ML IV SCH (06:29)
[2017-05-25] MEDS: oxyCODONE IR 5 MG TABLET PO PRN ×3 (06:29→15:03)
[2017-05-25 07:00] VITALS: BP 104/59
[2017-05-25] MEDS: IPRATRPIUM/ALBUTEROL 0.5/2.5MG 3 ML NEBU. NEB SCH ×2 (08:39→11:32)
[2017-05-25] MEDS: LISINOPRIL 20 MG TABLET PO SCH (09:00)
--- NOTE | 2017-05-25 10:17 | PDOC ---
PROGRESS NOTES Chief Complaint Chief Complaint RUQ abd pain ASSESSMENT AND PLAN: 1. Cholecystitis: s/p CCY, lap converted to open, on 05/22 2. Pain control: difficult; IV/PO narcotics PRN 3. Hypoxia: acute on chronic; needed BIPAP post surg, as well as add.l O2 when sleeping. ?obesity induced hypoventilation vs underlying lung dz; not a smoker. pulm consult 4. Nutrition: on clears; advance as per surg team 5. HTN: well controlled on lisinopril 6. Leukocytosis: reactive. monitor 7. Hypokalemia: resolved. 8. PCM: mild, hypoalbuminemia exacerbated by inflammation. 9. Prophylaxis: History of Present Illness History of Present Illness doing good on solids Claims she ambulates to bathroom,. PT says home independent RN concerned about low sats even while awake, and difficulty ambulation PLAN: 6MW, nocturnal pulse ox if stays 1 more night If GS clears for dc today, can do nocturnal pulse ox as OP Dw Dr reis and Maddie RN Await GS rounds re dispo RX inc callahan Vitals Vitals Vital Signs Date Time Temp Pulse Resp B/P (MAP) Pulse Ox O2 Delivery O2 Flow Rate FiO2 05/25/17 08:42 96 Nasal Cannula 2.0 05/25/17 07:00 98.2 78 18 104/59 (74) 98.2 Physical Exam General: Alert, Oriented X3, Cooperative, No acute distress Heart: Regular rate, No murmurs Lungs: Clear Abdomen: Soft, Other (dressings dry, jareth dark bloody) Extremities: Other (dressing dry, jareth bilious tinge) Skin: No rashes Labs LABS Laboratory Tests Test 05/25/17 03:40 Sodium Level 140 mmol/L (136-145) Potassium Level 4.1 mmol/L (3.5-5.1) Chloride Level 108 mmol/L (98-107) Carbon Dioxide Level 27 mmol/L (21-32) Anion Gap 5 (6-14) Blood Urea Nitrogen 19 mg/dL (7-20) Creatinine 1.3 mg/dL (0.6-1.0) Estimated GFR (Cockcroft-Gault) 41.8 Glucose Level 84 mg/dL (70-99) Calcium Level 8.5 mg/dL (8.5-10.1) Phosphorus Level 2.8 mg/dL (2.6-4.7) Albumin 2.2 g/dL (3.4-5.0) Review of Systems Review of Systems soa, abd soreness, no emesis, nasuea Assessment and Plan Assessmemt and Plan Problems Medical Problems: (1) Abdominal pain Status: Acute (2) Cholecystitis Status: Acute Problems: Comment Review of Relevant I have reviewed the following items simon (where applicable) has been applied. Labs Laboratory Tests Test 05/24/17 03:35 05/25/17 03:40 White Blood Count 10.1 x10^3/uL (4.0-11.0) Red Blood Count 3.50 x10^6/uL (3.50-5.40) Hemoglobin 10.2 g/dL (12.0-15.5) Hematocrit 30.4 % (36.0-47.0) Mean Corpuscular Volume 87 fL (79-100) Mean Corpuscular Hemoglobin 29 pg (25-35) Mean Corpuscular Hemoglobin Concent 34 g/dL (31-37) Red Cell Distribution Width 14.8 % (11.5-14.5) Platelet Count 253 x10^3/uL (140-400) Neutrophils (%) (Auto) 72 % (31-73) Lymphocytes (%) (Auto) 17 % (24-48) Monocytes (%) (Auto) 8 % (0-9) Eosinophils (%) (Auto) 3 % (0-3) Basophils (%) (Auto) 0 % (0-3) Neutrophils # (Auto) 7.2 x10^3uL (1.8-7.7) Lymphocytes # (Auto) 1.7 x10^3/uL (1.0-4.8) Monocytes # (Auto) 0.8 x10^3/uL (0.0-1.1) Eosinophils # (Auto) 0.3 x10^3/uL (0.0-0.7) Basophils # (Auto) 0.0 x10^3/uL (0.0-0.2) Sodium Level 139 mmol/L (136-145) 140 mmol/L (136-145) Potassium Level 3.6 mmol/L (3.5-5.1) 4.1 mmol/L (3.5-5.1) Chloride Level 105 mmol/L (98-107) 108 mmol/L (98-107) Carbon Dioxide Level 29 mmol/L (21-32) 27 mmol/L (21-32) Anion Gap 5 (6-14) 5 (6-14) Blood Urea Nitrogen 27 mg/dL (7-20) 19 mg/dL (7-20) Creatinine 1.7 mg/dL (0.6-1.0) 1.3 mg/dL (0.6-1.0) Estimated GFR (Cockcroft-Gault) 30.7 41.8 BUN/Creatinine Ratio 16 (6-20) Glucose Level 87 mg/dL (70-99) 84 mg/dL (70-99) Calcium Level 8.5 mg/dL (8.5-10.1) 8.5 mg/dL (8.5-10.1) Total Bilirubin 0.3 mg/dL (0.2-1.0) Aspartate Amino Transf (AST/SGOT) 67 U/L (15-37) Alanine Aminotransferase (ALT/SGPT) 43 U/L (14-59) Alkaline Phosphatase 63 U/L (46-116) Total Protein 5.8 g/dL (6.4-8.2) Albumin 2.3 g/dL (3.4-5.0) 2.2 g/dL (3.4-5.0) Albumin/Globulin Ratio 0.7 (1.0-1.7) Phosphorus Level 2.8 mg/dL (2.6-4.7) Laboratory Tests Test 05/25/17 03:40 Sodium Level 140 mmol/L (136-145) Potassium Level 4.1 mmol/L (3.5-5.1) Chloride Level 108 mmol/L (98-107) Carbon Dioxide Level 27 mmol/L (21-32) Anion Gap 5 (6-14) Blood Urea Nitrogen 19 mg/dL (7-20) Creatinine 1.3 mg/dL (0.6-1.0) Estimated GFR (Cockcroft-Gault) 41.8 Glucose Level 84 mg/dL (70-99) Calcium Level 8.5 mg/dL (8.5-10.1) Phosphorus Level 2.8 mg/dL (2.6-4.7) Albumin 2.2 g/dL (3.4-5.0) Microbiology 05/21/17 Urine Culture - Final, Complete 05/21/17 Urine Culture Result 1 (KOFI) - Final, Complete Medications Current Medications Fentanyl Citrate (Fentanyl 2ml Vial) 75 mcg 1X ONCE IV Last administered on 12:25; Start 05/21/17 at 12:00; Stop 05/21/17 at 12:01; Status DC Ondansetron HCl (Zofran) 4 mg 1X ONCE IV Last administered on 05/21/17 12:24 ; Start 05/21/17 at 12:00; Stop 05/21/17 at 12:01; Status DC Iohexol (Omnipaque 300 Mg/ml) 75 ml 1X ONCE IV ; Start 05/21/17 at 12:00; Stop 05/21/17 at 12:01; Status DC Iohexol (Omnipaque 240 Mg/ml) 30 ml 1X ONCE PO Last administered on 13:48; Start 05/21/17 at 13:00; Stop 05/21/17 at 13:01; Status DC Info (Do NOT chart on this entry -- for MONITORING) 1 each PRN DAILY PRN MC SEE COMMENTS; Start 05/21/17 at 13:00; Stop 05/23/17 at 12:59; Status DC Piperacillin Sod/ Tazobactam Sod 3.375 gm/Dextrose 50 ml @ 100 mls/hr 1X ONCE IV ; Start 05/21/17 at 14:45; Stop 05/21/17 at 15:14; Status Cancel Piperacillin Sod/ Tazobactam Sod (Zosyn) 3.375 gm 1X IVP ; Start 05/21/17 at 14 :45; Stop 05/21/17 at 15:22; Status DC Piperacillin Sod/ Tazobactam Sod (Zosyn) 3.375 gm 1X ONCE IVP Last administered on 05/21/17 15:25; Start 05/21/17 at 15:30; Stop 05/21/17 at 15 :31; Status DC Ondansetron HCl (Zofran) 4 mg PRN Q6HRS PRN IV NAUSEA/VOMITING Last administered on 05/23/17 03:04; Start 05/21/17 at 16:00; Stop 05/24/17 at 13 :35; Status DC Morphine Sulfate 2 mg PRN Q2HR PRN IV PAIN Last administered on 05/23/17 03: 03; Start 05/21/17 at 16:00 Piperacillin Sod/ Tazobactam Sod (Zosyn Per Pharmacy) 1 each PRN DAILY PRN MC SEE COMMENTS; Start 05/21/17 at 16:00 Potassium Chloride/Sodium Chloride 1,000 ml @ 100 mls/hr Q10H IV Last administered on 05/25/17 06:29; Start 05/21/17 at 16:30 Piperacillin Sod/ Tazobactam Sod (Zosyn) 3.375 gm Q6HRS IVP Last administered on 05/25/17 07:13; Start 05/21/17 at 23:00 Info (Do NOT chart on this placeholder) 0.5 each 1X ONCE MC ; Start 05/21/17 at 19:30; Stop 05/21/17 at 19:31; Status UNV Influenza Virus Vaccine Quadrival (Fluarix Quad [id number] Syringe) 0.5 ml ONCE ONCE VAX IM Last administered on 05/22/17 21:00; Start 05/21/17 at 20:00; Stop 05/21/17 at 20:01; Status DC Metoclopramide HCl (Reglan Vial) 10 mg PRN Q6HRS PRN IV NAUSEA/VOMITING Last administered on 05/21/17 21:02; Start 05/21/17 at 20:15 Lisinopril (Prinivil) 20 mg DAILY PO Last administered on 05/22/17 10:02; Start 05/22/17 at 09:00 Cefazolin Sodium/ Dextrose 50 ml @ 100 mls/hr 1X PREOP ONCE IV ; Start at 09:00; Stop 05/22/17 at 09:29; Status DC Ondansetron HCl (Zofran) 4 mg PRN Q6HRS PRN IV NAUSEA/VOMITING Last administered on 05/22/17 14:24; Start 05/22/17 at 07:30; Stop 05/23/17 at 07 :29; Status DC Fentanyl Citrate (Fentanyl 2ml Vial) 25 mcg PRN Q5MIN PRN IV MILD PAIN Last administered on 05/22/17 14:34; Start 05/22/17 at 07:30; Stop 05/23/17 at 07 :29; Status DC Fentanyl Citrate (Fentanyl 2ml Vial) 50 mcg PRN Q5MIN PRN IV MODERATE PAIN; Start 05/22/17 at 07:30; Stop 05/23/17 at 07:29; Status DC Morphine Sulfate 1 mg PRN Q10MIN PRN IV SEVERE PAIN; Start 05/22/17 at 07:30; Stop 05/23/17 at 07:29; Status DC Ringer's Solution 1,000 ml @ 30 mls/hr Q24H IV Last administered on 10:15; Start 05/22/17 at 07:28; Stop 05/22/17 at 19:27; Status DC Lidocaine HCl (Xylocaine-Mpf 1% Vial) 2 ml 1X PRN PRN ID IV START; Start 05/22 at 07:30; Stop 05/23/17 at 07:29; Status DC Hydromorphone HCl (Dilaudid) 0.5 mg PRN Q10MIN PRN IV SEV PAIN, Second choice; Start 05/22/17 at 07:30; Stop 05/23/17 at 07:29; Status DC Iohexol (Omnipaque 300 Mg/ml) 50 ml STK-MED ONCE .ROUTE Last administered on 11:20; Start 05/22/17 at 10:27; Stop 05/22/17 at 10:28; Status DC Bupivacaine HCl/ Epinephrine Bitart (Sensorcain-Mpf Epi 0.5%-[id number]) 30 ml STK -MED ONCE .ROUTE Last administered on 05/22/17 11:20; Start 05/22/17 at 10: 27; Stop 05/22/17 at 10:28; Status DC Cellulose 1 each STK-MED ONCE .ROUTE Last administered on 05/22/17 11:20; Start 05/22/17 at 10:27; Stop 05/22/17 at 10:28; Status DC Heparin Sodium (Porcine) (Heparin Sodium) 10,000 unit STK-MED ONCE .ROUTE Last administered on 05/22/17 11:20; Start 05/22/17 at 10:28; Stop 05/22/17 at 10 :29; Status DC Bisacodyl (Dulcolax Supp) 10 mg STK-MED ONCE .ROUTE Last administered on t 11:20; Start 05/22/17 at 10:28; Stop 05/22/17 at 10:29; Status DC Neostigmine Methylsulfate (Bloxiverz) 10 mg STK-MED ONCE .ROUTE ; Start at 10:29; Stop 05/22/17 at 10:30; Status DC Rocuronium [place] (Zemuron) 50 mg STK-MED ONCE .ROUTE ; Start 05/22/17 at 10: 29; Stop 05/22/17 at 10:30; Status DC Fentanyl Citrate (Fentanyl 2ml Vial) 100 mcg STK-MED ONCE .ROUTE ; Start at 10:30; Stop 05/22/17 at 10:31; Status DC Midazolam HCl (Versed) 2 mg STK-MED ONCE .ROUTE ; Start 05/22/17 at 10:30; Stop 05/22/17 at 10:31; Status DC Glycopyrrolate (Robinul) 1 mg STK-MED ONCE .ROUTE ; Start 05/22/17 at 10:30; Stop 05/22/17 at 10:31; Status DC Propofol 20 ml @ As Directed STK-MED ONCE IV ; Start 05/22/17 at 10:30; Stop 05/22/17 at 10:31; Status DC Ondansetron HCl (Zofran) 4 mg STK-MED ONCE .ROUTE ; Start 05/22/17 at 10:30; Stop 05/22/17 at 10:31; Status DC Dexamethasone Sodium Phosphate (Decadron) 20 mg STK-MED ONCE .ROUTE ; Start at 10:30; Stop 05/22/17 at 10:31; Status DC Lidocaine HCl (Lidocaine Pf 2% Vial) 5 ml STK-MED ONCE .ROUTE ; Start 05/22/17 at 10:30; Stop 05/22/17 at 10:31; Status DC Scopolamine (Transderm-Scop) 1 patch STK-MED ONCE TD ; Start 05/22/17 at 10:34 ; Stop 05/22/17 at 10:35; Status DC Ephedrine Sulfate (Akovaz) 50 mg STK-MED ONCE .ROUTE ; Start 05/22/17 at 11:08 ; Stop 05/22/17 at 11:09; Status DC Phenylephrine HCl 1 mg STK-MED ONCE IV ; Start 05/22/17 at 11:15; Stop at 11:16; Status DC Fentanyl Citrate (Fentanyl 2ml Vial) 100 mcg STK-MED ONCE .ROUTE ; Start at 11:49; Stop 05/22/17 at 11:50; Status DC Desflurane (Suprane) 60 ml STK-MED ONCE IH ; Start 05/22/17 at 11:55; Stop at 11:56; Status DC Fentanyl Citrate (Fentanyl 2ml Vial) 100 mcg STK-MED ONCE .ROUTE ; Start at 12:08; Stop 05/22/17 at 12:09; Status DC Rocuronium [place] (Zemuron) 50 mg STK-MED ONCE .ROUTE ; Start 05/22/17 at 12: 12; Stop 05/22/17 at 12:13; Status DC Morphine Sulfate 10 mg STK-MED ONCE .ROUTE ; Start 05/22/17 at 12:27; Stop at 12:28; Status DC Fentanyl Citrate (Fentanyl 2ml Vial) 100 mcg STK-MED ONCE .ROUTE ; Start at 12:29; Stop 05/22/17 at 12:30; Status DC Enoxaparin Sodium (Lovenox 40mg Syringe) 40 mg Q12HR SQ Last administered on t 20:37; Start 05/22/17 at 21:00 Sodium Chloride (Normal Saline Flush) 3 ml QSHIFT PRN IV AFTER MEDS AND BLOOD DRAWS; Start 05/22/17 at 13:00 Ringer's Solution 1,000 ml @ 100 mls/hr Q10H IV ; Start 05/22/17 at 12:57; Stop 05/23/17 at 09:18; Status DC Dextrose (Dextrose 50%-Water Syringe) 12.5 gm PRN Q15MIN PRN IV SEE COMMENTS; Start 05/22/17 at 13:00 Acetaminophen/ Hydrocodone Bitart (Lortab 5/325) 1 tab PRN Q4HRS PRN PO MILD PAIN Last administered on 05/23/17 09:06; Start 05/22/17 at 13:00; Stop at 09:18; Status DC Ketorolac Tromethamine (Toradol) 30 mg PRN Q6HRS PRN IV PAIN Last administered on 05/23/17 17:44; Start 05/22/17 at 13:00; Stop 05/27/17 at 12:59 Morphine Sulfate 1 mg PRN Q1HR PRN IV PAIN; Start 05/22/17 at 13:00 Docusate Sodium (Colace) 100 mg BID PO Last administered on 05/24/17 20:36; Start 05/22/17 at 21:00 Ondansetron HCl (Zofran) 4 mg PRN Q6HRS PRN IV NAUESA, 1ST CHOICE; Start 05/22 at 13:00 Albuterol Sulfate (Ventolin Neb Soln) 2.5 mg 1X PACU PRN NEB COUGH; Start at 13:15 Fentanyl Citrate (Fentanyl 2ml Vial) 100 mcg STK-MED ONCE .ROUTE ; Start at 13:17; Stop 05/22/17 at 13:18; Status DC Albuterol Sulfate (Ventolin Neb Soln) 2.5 mg STK-MED ONCE .ROUTE ; Start at 13:17; Stop 05/22/17 at 13:18; Status DC Sodium Chloride 1,000 ml @ 50 mls/hr Q20H IV ; Start 05/23/17 at 09:15; Stop 05/24/17 at 07:02; Status DC Oxycodone HCl (Roxicodone) 5 mg PRN Q4HRS PRN PO PAIN; Start 05/23/17 at 09:15 Oxycodone HCl (Roxicodone) 10 mg PRN Q4HRS PRN PO PAIN Last administered on 06:29; Start 05/23/17 at 09:30 Lactobacillus Rhamnosus (Culturelle) 1 cap BID PO Last administered on 20:37; Start 05/23/17 at 21:00 Albuterol/ Ipratropium (Duoneb) 3 ml RTQID NEB Last administered on 05/25/17 08:39; Start 05/23/17 at 12:00 Sodium Chloride 1,000 ml @ 1,000 mls/hr 1X ONCE IV Last administered on 05/23 16:00; Start 05/23/17 at 16:00; Stop 05/23/17 at 16:59; Status DC Active Scripts Active Reported Lisinopril-Hctz 20-25 Mg Tab (Lisinopril/Hydrochlorothiazide) 1 Each Tablet 1 Tab PO DAILY Vitals/I & O Vital Sign - Last 24 Hours 05/24/17 05/24/17 05/24/17 05/24/17 10:35 11:00 11:48 15:07 Temp 98.2 98.1 98.2 98.1 Pulse 73 78 Resp 20 18 18 B/P (MAP) 112/61 (78) 100/42 (61) Pulse Ox 92 95 94 O2 Delivery Nasal Cannula Nasal Cannula Nasal Cannula Nasal Cannula O2 Flow Rate 2.0 2.0 05/24/17 05/24/17 05/24/17 05/24/17 16:05 16:08 19:00 20:00 Temp 97.4 97.4 Pulse 104 Resp 20 18 B/P (MAP) 133/80 (97) Pulse Ox 94 98 O2 Delivery Nasal Cannula Nasal Cannula Nasal Cannula Nasal Cannula O2 Flow Rate 2.0 2.0 2.0 2.0 05/24/17 05/24/17 05/24/17 05/24/17 20:37 20:40 21:37 23:00 Temp 98.5 98.5 Pulse 86 Resp 20 18 18 B/P (MAP) 98/63 (75) Pulse Ox 94 94 94 94 O2 Delivery Nasal Cannula Nasal Cannula Nasal Cannula Nasal Cannula O2 Flow Rate 2.0 2.0 2.0 2.0 05/25/17 05/25/17 05/25/17 05/25/17 03:00 06:29 07:00 08:00 Temp 98.2 98.2 98.2 98.2 Pulse 80 78 Resp 18 18 B/P (MAP) 115/64 (81) 104/59 (74) Pulse Ox 96 96 91 O2 Delivery Nasal Cannula Nasal Cannula Nasal Cannula Nasal Cannula O2 Flow Rate 2.0 2.0 2.0 2.0 05/25/17 08:42 Pulse Ox 96 O2 Delivery Nasal Cannula O2 Flow Rate 2.0 Intake and Output 05/24/17 05/24/17 05/25/17 15:00 23:00 07:00 Intake Total 300 ml 190 ml Output Total 370 ml 250 ml 650 ml Balance -370 ml 50 ml -460 ml HAFSA ELLIS MD May 25, 2017 10:17
[2017-05-25] MEDS: DOCUSATE SODIUM 100 MG CAPSULE. PO SCH (10:36)
[2017-05-25] MEDS: LACTOBACILLUS RHAMNOSUS GG 1 CAPSULE. PO SCH (10:36)
[2017-05-25 11:00] VITALS: BP 112/63
--- NOTE | 2017-05-25 11:20 | PDOC3 ---
Discharge Summary Visit Information Date of Admission: May 21, 2017 Date of Discharge: May 25, 2017 Final Diagnosis Problems Medical Problems: (1) Abdominal pain Status: Acute (2) Cholecystitis Status: Acute Brief Hospital Course Allergies Allergies Coded Allergies Type Severity Reaction Last Updated Verified No Known Drug Allergies 05/21/17 No Vital Signs Vital Signs Date Time Temp Pulse Resp B/P (MAP) Pulse Ox O2 Delivery O2 Flow Rate FiO2 05/25/17 10:42 20 91 Nasal Cannula 05/25/17 09:00 78 104/59 05/25/17 08:42 2.0 05/25/17 07:00 98.2 98.2 Lab Results Laboratory Tests Test 05/24/17 03:35 05/25/17 03:40 White Blood Count 10.1 x10^3/uL (4.0-11.0) Red Blood Count 3.50 x10^6/uL (3.50-5.40) Hemoglobin 10.2 g/dL (12.0-15.5) Hematocrit 30.4 % (36.0-47.0) Mean Corpuscular Volume 87 fL (79-100) Mean Corpuscular Hemoglobin 29 pg (25-35) Mean Corpuscular Hemoglobin Concent 34 g/dL (31-37) Red Cell Distribution Width 14.8 % (11.5-14.5) Platelet Count 253 x10^3/uL (140-400) Neutrophils (%) (Auto) 72 % (31-73) Lymphocytes (%) (Auto) 17 % (24-48) Monocytes (%) (Auto) 8 % (0-9) Eosinophils (%) (Auto) 3 % (0-3) Basophils (%) (Auto) 0 % (0-3) Neutrophils # (Auto) 7.2 x10^3uL (1.8-7.7) Lymphocytes # (Auto) 1.7 x10^3/uL (1.0-4.8) Monocytes # (Auto) 0.8 x10^3/uL (0.0-1.1) Eosinophils # (Auto) 0.3 x10^3/uL (0.0-0.7) Basophils # (Auto) 0.0 x10^3/uL (0.0-0.2) Sodium Level 139 mmol/L (136-145) 140 mmol/L (136-145) Potassium Level 3.6 mmol/L (3.5-5.1) 4.1 mmol/L (3.5-5.1) Chloride Level 105 mmol/L (98-107) 108 mmol/L (98-107) Carbon Dioxide Level 29 mmol/L (21-32) 27 mmol/L (21-32) Anion Gap 5 (6-14) 5 (6-14) Blood Urea Nitrogen 27 mg/dL (7-20) 19 mg/dL (7-20) Creatinine 1.7 mg/dL (0.6-1.0) 1.3 mg/dL (0.6-1.0) Estimated GFR (Cockcroft-Gault) 30.7 41.8 BUN/Creatinine Ratio 16 (6-20) Glucose Level 87 mg/dL (70-99) 84 mg/dL (70-99) Calcium Level 8.5 mg/dL (8.5-10.1) 8.5 mg/dL (8.5-10.1) Total Bilirubin 0.3 mg/dL (0.2-1.0) Aspartate Amino Transf (AST/SGOT) 67 U/L (15-37) Alanine Aminotransferase (ALT/SGPT) 43 U/L (14-59) Alkaline Phosphatase 63 U/L (46-116) Total Protein 5.8 g/dL (6.4-8.2) Albumin 2.3 g/dL (3.4-5.0) 2.2 g/dL (3.4-5.0) Albumin/Globulin Ratio 0.7 (1.0-1.7) Phosphorus Level 2.8 mg/dL (2.6-4.7) Laboratory Tests Test 05/25/17 03:40 Sodium Level 140 mmol/L (136-145) Potassium Level 4.1 mmol/L (3.5-5.1) Chloride Level 108 mmol/L (98-107) Carbon Dioxide Level 27 mmol/L (21-32) Anion Gap 5 (6-14) Blood Urea Nitrogen 19 mg/dL (7-20) Creatinine 1.3 mg/dL (0.6-1.0) Estimated GFR (Cockcroft-Gault) 41.8 Glucose Level 84 mg/dL (70-99) Calcium Level 8.5 mg/dL (8.5-10.1) Phosphorus Level 2.8 mg/dL (2.6-4.7) Albumin 2.2 g/dL (3.4-5.0) Brief Hospital Course Ms. Werner is a 61 old obese,claims non smoker but everybody around her smokes , admitted for GB stones needed lap roni turned into open, Course remarkable for hypoxia needing pulmo, NEeds O2 on dc, Advsied on cigarettes. NO need for abx, no PE. NEeds OP polysomnogram too, Dw her and comapniiona nd RN and pulmo Seen and examined Ff up GS 1-2 weeks with DAISY drain COnsults; pulmo GS Proc: open roni Discharge Information Condition at Discharge: Improved, Stable Disposition/Orders: D/C to Home Scheduled Lisinopril/Hydrochlorothiazide (Lisinopril-Hctz 20-25 Mg Tab), 1 TAB PO DAILY, ( Reported) HAFSA ELLIS MD May 25, 2017 11:20
--- NOTE | 2017-05-25 11:44 | PDOC ---
PULMONARY PROGRESS NOTES Subjective PT FEELS BETTER LESS SOA Vitals Vital Signs Date Time Temp Pulse Resp B/P (MAP) Pulse Ox O2 Delivery O2 Flow Rate FiO2 05/25/17 11:34 Nasal Cannula 2.0 05/25/17 11:00 98.1 79 18 112/63 (79) 93 98.1 ROS: No Nausea, No Chest Pain, No Increase Cough Lungs: Clear Cardiovascular: S1, S2 Abdomen: Soft Neuro Exam: Alert Extremities: No Edema Skin: Warm Labs Laboratory Tests Test 05/24/17 03:35 05/25/17 03:40 White Blood Count 10.1 x10^3/uL (4.0-11.0) Red Blood Count 3.50 x10^6/uL (3.50-5.40) Hemoglobin 10.2 g/dL (12.0-15.5) Hematocrit 30.4 % (36.0-47.0) Mean Corpuscular Volume 87 fL (79-100) Mean Corpuscular Hemoglobin 29 pg (25-35) Mean Corpuscular Hemoglobin Concent 34 g/dL (31-37) Red Cell Distribution Width 14.8 % (11.5-14.5) Platelet Count 253 x10^3/uL (140-400) Neutrophils (%) (Auto) 72 % (31-73) Lymphocytes (%) (Auto) 17 % (24-48) Monocytes (%) (Auto) 8 % (0-9) Eosinophils (%) (Auto) 3 % (0-3) Basophils (%) (Auto) 0 % (0-3) Neutrophils # (Auto) 7.2 x10^3uL (1.8-7.7) Lymphocytes # (Auto) 1.7 x10^3/uL (1.0-4.8) Monocytes # (Auto) 0.8 x10^3/uL (0.0-1.1) Eosinophils # (Auto) 0.3 x10^3/uL (0.0-0.7) Basophils # (Auto) 0.0 x10^3/uL (0.0-0.2) Sodium Level 139 mmol/L (136-145) 140 mmol/L (136-145) Potassium Level 3.6 mmol/L (3.5-5.1) 4.1 mmol/L (3.5-5.1) Chloride Level 105 mmol/L (98-107) 108 mmol/L (98-107) Carbon Dioxide Level 29 mmol/L (21-32) 27 mmol/L (21-32) Anion Gap 5 (6-14) 5 (6-14) Blood Urea Nitrogen 27 mg/dL (7-20) 19 mg/dL (7-20) Creatinine 1.7 mg/dL (0.6-1.0) 1.3 mg/dL (0.6-1.0) Estimated GFR (Cockcroft-Gault) 30.7 41.8 BUN/Creatinine Ratio 16 (6-20) Glucose Level 87 mg/dL (70-99) 84 mg/dL (70-99) Calcium Level 8.5 mg/dL (8.5-10.1) 8.5 mg/dL (8.5-10.1) Total Bilirubin 0.3 mg/dL (0.2-1.0) Aspartate Amino Transf (AST/SGOT) 67 U/L (15-37) Alanine Aminotransferase (ALT/SGPT) 43 U/L (14-59) Alkaline Phosphatase 63 U/L (46-116) Total Protein 5.8 g/dL (6.4-8.2) Albumin 2.3 g/dL (3.4-5.0) 2.2 g/dL (3.4-5.0) Albumin/Globulin Ratio 0.7 (1.0-1.7) Phosphorus Level 2.8 mg/dL (2.6-4.7) Laboratory Tests Test 05/25/17 03:40 Sodium Level 140 mmol/L (136-145) Potassium Level 4.1 mmol/L (3.5-5.1) Chloride Level 108 mmol/L (98-107) Carbon Dioxide Level 27 mmol/L (21-32) Anion Gap 5 (6-14) Blood Urea Nitrogen 19 mg/dL (7-20) Creatinine 1.3 mg/dL (0.6-1.0) Estimated GFR (Cockcroft-Gault) 41.8 Glucose Level 84 mg/dL (70-99) Calcium Level 8.5 mg/dL (8.5-10.1) Phosphorus Level 2.8 mg/dL (2.6-4.7) Albumin 2.2 g/dL (3.4-5.0) Medications Active Scripts Medications Dose Route/Sig Max Daily Dose Days Date Category Lisinopril-Hctz 20-25 Mg Tab (Lisinopril/Hydrochlorothiazide) 1 Each Tablet 1 Tab PO DAILY 05/21/17 Reported Impression . 1. EXPECTED RESP FAILURE AFTER SURGERY 2. No significant history of tobacco use. 3. Underlying morbid obesity and suspected obstructive sleep apnea, will benefit from sleep study as an outpatient. 4. Status post open cholecystectomy. Plan . home with 02 oupt nocturnal study CHRISTIANE BARBOSA MD May 25, 2017 11:44
[2017-05-25] MEDS ORDERED: OXYC5CAP PO (12:54)
--- NOTE | 2017-05-25 14:18 | PATHOLOGY ---
PATHOLOGY REPORT * * * * * * * * FINAL DIAGNOSIS: Gallbladder, laparoscopic cholecystectomy: - Cholelithiasis. - Acute hemorrhagic and chronic cholecystitis with eosinophils. COMMENT: There is no evidence of malignancy. (JPM:; 05/25/2017) REPORT ELECTRONICALLY SIGNED BY: Eder Cervantes M.D. DATE/TIME: 05/25/2017 14:17 * * * * * * * * GROSS PATHOLOGY: Received in formalin labeled "Carol Martinez, gallbladder," is a 9.5 x 5.5 x 3.4 cm, intact gallbladder with dark brown, highly wrinkled serosal surfaces. Opening the gallbladder reveals dark diaz, grainy mucosa and an average wall thickness of 0.2 cm. Calculi are present, measuring 1.9-2.6 cm in maximum dimension, possessing a bright yellow and granular appearance, and feeling friable to the touch. No masses are noted grossly. [employer] sections from the body and fundus are submitted along with the proximal margin in cassette A1. (TSD; 05/24/2017) INITIAL CPT CODE(S): A; 23765 Professional services performed [place] [email or web address] [address] Technical services performed by [email or web address] at [address] [place] [address], [facility] [address] [address]. SPECIMEN(S) RECEIVED: A.Gallbladder CLINICAL HISTORY: Acute cholecystitis PATIENT: CAROL MARTINEZ /AGE: 208/21/1955 (Age: 61) PATIENT #: [id number] ALT CASE #: SPECIMEN COLLECTION DATE: 05/22/2017 SPECIMEN RECEIVED DATE: 05/24/2017 [facility] - [id number] [place] [address] - PHONE: [phone] * * * END OF REPORT * * *
[2017-05-25 15:00] VITALS: BP 97/64
== END 2017-05-25 15:15 | disposition home or self-care (01) | DRG 414 ==
LOC: ER 10:34 → 5 NORTH 14:30
PROVIDERS: ADMIT Internal Medicine Hematology & Oncology; ATTEND Internal Medicine Hematology & Oncology
PROC: 0FJ44ZZ Inspection of Gallbladder, Percutaneous Endoscopic Approach (ICD-10-PCS; 2017-05-22)
PROC: BF111ZZ Fluoroscopy of Biliary and Pancreatic Ducts using Low Osmolar Contrast (ICD-10-PCS; 2017-05-22)
PROC: 5A09357 Assistance with Respiratory Ventilation, Less than 24 Consecutive Hours, Continuous Positive Airway Pressure (ICD-10-PCS; 2017-05-22)
PROC: 0FT40ZZ Resection of Gallbladder, Open Approach (ICD-10-PCS; principal; 2017-05-22 11:00)
DX: K81.9 Cholecystitis, unspecified (principal); J96.91 Respiratory failure, unspecified with hypoxia; E44.1 Mild protein-calorie malnutrition; Z68.41 Body mass index [BMI] 40.0-44.9, adult; J98.11 Atelectasis; E88.09 Other disorders of plasma-protein metabolism, not elsewhere classified; E66.01 Morbid (severe) obesity due to excess calories; I10 Essential (primary) hypertension; K82.8 Other specified diseases of gallbladder; Z53.31 Laparoscopic surgical procedure converted to open procedure; Z90.49 Acquired absence of other specified parts of digestive tract
CPT/HCPCS: 36415; 71010; 74176; 74300; 80048; 80053; 80069; 80076; 81001; 83690; 85007; 85025; 87086; 88304; 90686; 94250; 94620; 94640; 94660; 94760; 96374; 96375; G0238; J1100; J1644; J1650; J1885; J2250; J2270; J2370; J2405; J2543; J2704; J2710; J2765; J3010; J3490; J7030; J7120; J7620; Q9966; Q9967; 97535; 99285-25; J2001

== ENCOUNTER → 2019-04-14 | Outpatient (CLI) | payer BC ==
[~2019-04-14] MED LIST: LISI1TAB20 PO; OXYC5CAP PO
--- NOTE | 2019-04-14 16:02 | KCIC ---
MR of the left knee HISTORY: Left knee pain, for one year. Pain is generalized. TECHNIQUE: Routine multiplanar sequences are obtained. FINDINGS: Distortion and abnormal signal the medial meniscus compatible with a degenerative tear. No evidence of a lateral meniscal tear. Anterior cruciate ligament is thick and heterogeneous likely due to degeneration. Apparent impingement and mass effect upon the ACL due to osteophytes within the intracondylar notch. The anterior cruciate ligament is displaced by the osteophytes but no definite rupture although some degree of tearing could be difficult to exclude if there is concern for tear or insufficiency. Posterior cruciate ligament intact. Medial collateral ligament is intact. Iliotibial band unremarkable. Fibular collateral ligament, biceps femoris tendon and popliteus tendon are intact. The extensor mechanism is intact. Trace joint effusion. Severe patellofemoral joint DJD with full-thickness chondral loss and subchondral cysts at the lateral aspect of the joint. Severe degenerative changes at the medial compartment with full-thickness cartilage loss, subchondral cysts and subchondral bone surface flattening. Mild degenerative changes at the lateral joint compartment. No acute fracture. No aggressive bone destruction. No significant Serna's cyst. IMPRESSION: 1. Medial meniscal tear. 2. Severe DJD. 3. Impingement and displacement of the anterior cruciate ligament by notch osteophytes. Signal and heterogeneity of the ACL is thought to be degenerative. No specific evidence of acute rupture. Electronically signed by: Prabhu Mares MD (04/14/2019 3:59 PM) [id number]
== END | disposition home or self-care (01) ==
LOC: KCIC MRI 14:38
PROVIDERS: ATTEND Nurse Practitioner Family
DX: S83.242A Other tear of medial meniscus, current injury, left knee, initial encounter (principal); M25.762 Osteophyte, left knee; M17.12 Unilateral primary osteoarthritis, left knee; M25.462 Effusion, left knee; X58.XXXA Exposure to other specified factors, initial encounter; Y93.89 Activity, other specified; Y92.89 Other specified places as the place of occurrence of the external cause; Y99.8 Other external cause status
CPT/HCPCS: 73721